=== PATIENT | female | born 1945 | race Caucasian/White ===

== ENCOUNTER 2018-07-19 12:41 | Emergency (ER) | payer OTHER ==
--- OUTSIDE RECORDS SUMMARY | 2018-07-19 12:43 | XMS REPORT ---
:1945 Author Organization eClinicalWorks Care Team Providers Name Role Phone Diamond Guallpa Provider Role Unavailable Allergies, Adverse Reactions, Alerts Substance Reaction Event Type N.K.D.A. Info Not Available Non Drug Allergy Problems Problem Type Condition Code Onset Dates Condition Status Assessment Bronchitis J40 Active Problem Atherosclerotic heart disease of I25.10 Active [place] coronary artery without angina pectoris Problem Upper respiratory tract infection, J06.9 Active unspecified type Problem Bronchitis J40 Active Assessment Cough R05 Active Assessment Encounter for screening mammogram Z12.31 Active for malignant neoplasm of breast Problem Cough R05 Active Medications Medication Code Code Instructions Start End Status Dosage System Date Date Metoprolol [facility] 03897851702 100 MG Orally Active 1 tablet Tartrate every 12 hrs with food Albuterol ND 42103494772 0.63 MG/3ML Nov 14, Active 3 ml as Sulfate Inhalation Three 2018 needed times a day Lexapro ND 56776432419 10 MG Orally Active 1 tablet Once a day Vitamin B12 ND 81825320581 1000 MCG Orally Active 1 tablet Once a day Albuterol [facility] 31753431069 108 (90 Base) Nov 07, Active 2 puffs as Sulfate HFA MCG/ACT 2018 needed Inhalation every 6 hrs Tessalon ND 63474583302 100 MG Orally Nov 14, Dec 14, Active 1 capsule Perles Three times a 2018 2018 as needed day Medrol ND 27971745850 4 MG Orally as Nov 07, Active as directed directed 2018 Omeprazole ND 33159897671 40 MG Orally Active 1 capsule Once a day Pradaxa ND 49104349816 150 MG Orally Active 1 capsule Twice a day Vitamin D3 ND 70745262265 1000 UNIT Orally Active 1 capsule Once a day Augmentin ND 62911133904 875-125 MG Nov 07, Nov Active 1 tablet Orally every 2017 12, hrs 2018 Albuterol ND 91820724469 (2.5 MG/3ML) Nov 14, Active 3 ml as Sulfate 0.083% 2018 needed Inhalation Three times a day Results No Known Results Summary Purpose eClinicalWorks Submission
--- OUTSIDE RECORDS SUMMARY | 2018-07-19 12:43 | XMS REPORT ---
:1945 Author Organization eClinicalWorks Care Team Providers Name Role Phone [place] Diamond Provider Role Unavailable Allergies No Known Allergies Problems Problem Type Condition Code Onset Dates Condition Status Problem Atherosclerotic heart disease of I25.10 Active [place] coronary artery without angina pectoris Problem Upper respiratory tract infection, J06.9 Active unspecified type Problem Bronchitis J40 Active Problem Cough R05 Active Medications No Known Medications Results No Known Results Summary Purpose eClinicalWorks Submission
--- OUTSIDE RECORDS SUMMARY | 2018-07-19 12:43 | XMS REPORT ---
:1945 Author Organization eClinicalWorks Care Team Providers Name Role Phone [place] Diamond Provider Role Unavailable Allergies No Known Allergies Problems Problem Type Condition Code Onset Dates Condition Status Problem Atherosclerotic heart disease of I25.10 Active [place] coronary artery without angina pectoris Problem Upper respiratory tract infection, J06.9 Active unspecified type Problem Bronchitis J40 Active Problem Cough R05 Active Medications No Known Medications Results No Known Results Summary Purpose eClinicalWorks Submission
[2018-07-19] MEDS ORDERED: NA CHLORIDE 0.9% 1,000 ML ONE (13:32)
[2018-07-19 13:36] LABS: Absolute Lymphocytes (CBC) 0.6 K/uL (0.7-4.9); Absolute Monocytes 0.9 K/uL (0.1-1.3); Absolute Neutrophil 4.7 K/uL (1.8-8.0); Basophils % 0.5 % (0-1.3); Eosinophils % 3.4 % (0-4.4); Lymphocytes % 9.7 % (15.3-44.8); MPV 9.3 fL (7.6-11.3); Monocytes % 13.4 % (3.3-12.3); RBC Red Blood Cell Count 3.71 M/uL (3.86-4.86)
--- NOTE | 2018-07-19 14:08 | RAD REPORT ---
EXAM DESCRIPTION: RAD - Abdomen 1 View (KUB) - 07/19/2018 2:00 pm CLINICAL HISTORY: abdominal cramping Pain COMPARISON: No comparisons FINDINGS: The bowel gas pattern is non-obstructive. No evidence of free air or pneumatosis. No suspi cious calcifications. Mild lumbar levoscoliosis. IMPRESSION: Negative examination.
[2018-07-19 14:26] LABS: Anisocytosis 1+; Blood Morphology Comment NOTED (NOT SEEN); Macrocytosis 1+; Platelet Estimate ADEQ; Urine White Blood Cell Casts OK
[2018-07-19 14:36] LABS: Albumin 3.5 g/dL (3.4-5.0); Bilirubin Direct 0.1 mg/dL (0-0.2); Bilirubin Total 0.4 mg/dL (0.2-1.0); Potassium 3.8 mmol/L (3.5-5.1); Protein, Total 7.5 g/dL (6.4-8.2)
[2018-07-19 14:45] LABS: Urine Blood TRACE (NEG); Urine Glucose NEGATIVE (NEG); Urine Protein 1+ (NEG); Urine Specific Gravity 1.025 (1.005-1.030)
--- NOTE | 2018-07-19 15:55 | EDPHYS ---
Physician Documentation [facility] Name: Jennyfer Castillo Age: 73 yrs Sex: Female : 1945 Arrival Date: 07/19/2018 Time: 12:48 Bed 7 Private MD: ED Physician Hammad Guzman HPI: 07/19 13:10 This 73 yrs old Female presents to ER via EMS with complaints of Near jr8 Syncope, Nausea/Vomiting/Diarrhea. 13:10 The patient presents to the emergency department with nausea, vomiting, diarrhea. jr8 Onset: The symptoms/episode began/occurred gradually, 5 day(s) ago. Possible causes: unknown. The symptoms are aggravated by food , The symptoms are alleviated by nothing. Associated signs and symptoms: Pertinent positives: near syncope today. Severity of symptoms: At their worst the symptoms were moderate in the emergency department the symptoms are unchanged. The patient has not experienced similar symptoms in the past. The patient has not recently seen a physician. Stated that she has had n/v/d for the past 5 days. Today while showering felt like she was going to pass out but did not. Historical: - Allergies: 12:54 kiwi; hb - Home Meds: 12:54 Metoprolol Tartrate Oral [Active]; Pradaxa oral oral [Active]; Omeprazole Oral [Active];hb - PMHx: 12:54 Hypertension; hb - Immunization history:: Adult Immunizations up to date. - Social history:: Smoking status: Patient/guardian denies using tobacco. - Ebola Screening: : No symptoms or risks identified at this time. ROS: 13:10 Eyes: Negative for injury, pain, redness, and discharge, ENT: Negative for injury, jr8 pain, and discharge, Neck: Negative for injury, pain, and swelling, Cardiovascular: Negative for chest pain, palpitations, and edema, Respiratory: Negative for shortness of breath, cough, wheezing, and pleuritic chest pain, Back: Negative for injury and pain, MS/Extremity: Negative for injury and deformity, Skin: Negative for injury, rash, and discoloration. 13:10 Constitutional: Positive for body aches, fatigue, malaise. 13:10 Abdomen/GI: Positive for nausea, vomiting, and diarrhea, abdominal cramps, Negative for abdominal distension, anorexia, dysphagia, hematemesis, black/tarry stool, rectal pain, rectal bleeding, bowel incontinence, flatulence. 13:10 Neuro: Positive for near syncope, Negative for altered mental status, dizziness, gait disturbance, headache, hearing loss, loss of consciousness, numbness, seizure activity, speech changes, syncope, tingling, tinnitus, tremor, visual changes, weakness. Exam: 13:10 Eyes: Pupils equal round and reactive to light, extra-ocular motions intact. Lids and jr8 lashes normal. Conjunctiva and sclera are non-icteric and not injected. Cornea within normal limits. Periorbital areas with no swelling, redness, or edema. ENT: Nares patent. No nasal discharge, no septal abnormalities noted. Tympanic membranes are normal and external auditory canals are clear. Oropharynx with no redness, swelling, or masses, exudates, or evidence of obstruction, uvula midline. Mucous membranes moist. Neck: Trachea midline, no thyromegaly or masses palpated, and no cervical lymphadenopathy. Supple, full range of motion without nuchal rigidity, or vertebral point tenderness. No Meningismus. Cardiovascular: Regular rate and rhythm with a normal S1 and S2. No gallops, murmurs, or rubs. Normal PMI, no JVD. No pulse deficits. Respiratory: Lungs have equal breath sounds bilaterally, clear to auscultation and percussion. No rales, rhonchi or wheezes noted. No increased work of breathing, no retractions or nasal flaring. Abdomen/GI: Soft, non-tender, with normal bowel sounds. No distension or tympany. No guarding or rebound. No evidence of tenderness throughout. Back: No spinal tenderness. No costovertebral tenderness. Full range of motion. Skin: Warm, dry with normal turgor. Normal color with no rashes, no lesions, and no evidence of cellulitis. MS/ Extremity: Pulses equal, no cyanosis. Neurovascular intact. Full, normal range of motion. Neuro: Awake and alert, GCS 15, oriented to person, place, time, and situation. Cranial nerves II-XII grossly intact. Motor strength 5/5 in all extremities. Sensory grossly intact. Cerebellar exam normal. Normal gait. Vital Signs: 12:52 BP 122 / 62; Pulse 57; Resp 16; Temp 97.7; Pulse Ox 97% on R/A; Weight 97.52 kg; Height hb 5 ft. 4 in. (162.56 cm); Pain 4/10; 13:32 BP 123 / 84; Pulse 55; Resp 17; Pulse Ox 99% on R/A; hb 14:20 BP 129 / 70; Pulse 59; Resp 17; Pulse Ox 100% on R/A; tw2 15:20 BP 104 / 58; Pulse 51; Resp 17; Pulse Ox 100% on R/A; tw2 16:05 BP 117 / 77; Pulse 55; Resp 17; Pulse Ox 97% on R/A; tw2 12:52 Body Mass Index 36.90 (97.52 kg, 162.56 cm) hb MDM: 12:51 Patient medically screened. jr8 15:56 Data reviewed: vital signs, nurses notes, lab test result(s), radiologic studies, plain jr8 films. Data interpreted: Pulse oximetry: on room air is 100 %. Interpretation: normal. Counseling: I had a detailed discussion with the patient and/or guardian regarding: the historical points, exam findings, and any diagnostic results supporting the discharge/admit diagnosis, lab results, radiology results, the need for outpatient follow up, a family practitioner, a yard hostler, to return to the emergency department if symptoms worsen or persist or if there are any questions or concerns that arise at home. Response to treatment: the patient's symptoms have markedly improved after treatment. 07/19 13:09 Order name: Basic Metabolic Panel; Complete Time: 15:02 [facility] 07/19 13:09 Order name: CBC with Diff; Complete Time: 15: [facility] 07/19 13:09 Order name: Creatinine for Radiology; Complete Time: 13:46 [facility] 07/19 13:09 Order name: Hepatic Function; Complete Time: 15:02 [facility] 07/19 13:09 Order name: Lipase; Complete Time: 15:02 [facility] 07/19 13:49 Order name: Urine Dipstick--Ancillary (enter results); Complete Time: 15:02 07/19 13:09 Order name: IV Saline Lock; Complete Time: 13:30 [facility] 07/19 13:09 Order name: Labs collected and sent; Complete Time: 13:30 [facility] 07/19 13:10 Order name: XRAY KUB; Complete Time: 14:10 [facility] 07/19 14:26 Order name: CBC Smear Scan; Complete Time: 15:02 EDMS Administered Medications: 13:25 Drug: NS 0.9% 1000 ml Route: IV; Rate: 1000 ml; Site: left antecubital; tw2 15:20 Follow up: Response: No adverse reaction; IV Status: Completed infusion; IV Intake: hb 1000ml Disposition: 07/20 08:25 Co-signature as Attending Physician, Hammad Guzman MD. Disposition: 07/19/18 15:55 Discharged to Home. Impression: Diarrhea, unspecified, Dehydration. - Condition is Stable. - Discharge Instructions: Dehydration, Adult, Diarrhea, Adult. - Medication Reconciliation Form, Thank You Letter, Antibiotic Education, Prescription Opioid Use form. - Follow up: Private Physician; When: 2 - 3 days; Reason: Recheck today's complaints, Continuance of care, Re-evaluation by your physician. - Problem is new. - Symptoms have improved. - Notes: Immodium OTC Push fluids Signatures: Dispatcher [employer] EDPR Rivas Weir PA PA jr8 Kaye Herrera RN RN Mary Huff RN RN tw2 Hammad Guzman MD MD Corrections: (The following items were deleted from the chart) 07/19 16:27 15:55 07/19/2018 15:55 Discharged to Home. Impression: Diarrhea, unspecified; hb Dehydration. Condition is Stable. Forms are Medication Reconciliation Form, Thank You Letter, Antibiotic Education, Prescription Opioid Use. Follow up: Private Physician; When: 2 - 3 days; Reason: Recheck today's complaints, Continuance of care, Re-evaluation by your physician. Problem is new. Symptoms have improved. jr8
--- NOTE | 2018-07-19 15:55 | ER ---
Nurse's Notes [facility] Name: Jennyfer Castillo Age: 73 yrs Sex: Female : 1945 Arrival Date: 07/19/2018 Time: 12:48 Bed 7 Private MD: Diagnosis: Diarrhea, unspecified;Dehydration Presentation: 07/19 12:51 Presenting complaint: EMS states: Near syncopal episode while ambulating to bathroom, hb N/V/D x 3-4 days. Transition of care: patient was not received from another setting of care. Onset of symptoms is unknown. Risk Assessment: Do you want to hurt yourself or someone else? Patient reports no desire to harm self or others. Care prior to arrival: Medication(s) given: Normal saline infusion, 500 mL, IV initiated. 20 GA, in the left antecubital area. 12:51 Method Of Arrival: EMS: [facility] 12:51 Acuity: GWEN 3 hb 12:55 Initial Sepsis Screen: Does the patient meet any 2 criteria? No. Patient's initial hb sepsis screen is negative. Does the patient have a suspected source of infection? No. Patient's initial sepsis screen is negative. Triage Assessment: 12:55 General: Appears in no apparent distress. Behavior is calm, cooperative. Pain: Pain hb currently is 4 out of 10 on a pain scale. EENT: No signs and/or symptoms were reported regarding the EENT system. Neuro: Level of Consciousness is awake, alert, obeys commands, Oriented to person, place, time, situation, Reports headache. Cardiovascular: Capillary refill < 3 seconds Patient's skin is warm and dry. Respiratory: Airway is patent Respiratory effort is even, unlabored, Respiratory pattern is regular, symmetrical, Breath sounds are clear bilaterally. GI: Abdomen is non-distended, Bowel sounds Abd is soft and non tender X 4 quads. Reports cramping, diarrhea, nausea, vomiting. : No signs and/or symptoms were reported regarding the genitourinary system. Derm: Skin is intact, is healthy with good turgor, Skin is pink, warm \T\ dry. Musculoskeletal: No signs and/or symptoms reported regarding the musculoskeletal system. Historical: - Allergies: 12:54 kiwi; hb - Home Meds: 12:54 Metoprolol Tartrate Oral [Active]; Pradaxa oral oral [Active]; Omeprazole Oral [Active];hb - PMHx: 12:54 Hypertension; hb - Immunization history:: Adult Immunizations up to date. - Social history:: Smoking status: Patient/guardian denies using tobacco. - Ebola Screening: : No symptoms or risks identified at this time. Screenin:55 Abuse screen: Denies threats or abuse. Denies injuries from another. Nutritional hb screening: No deficits noted. Tuberculosis screening: No symptoms or risk factors identified. Fall Risk Total [place] Fall Scale indicates High Risk Score (45 or more points). Fall prevention measures have been instituted. Side Rails Up X 2 Frequent Obs/Assessments Occuring Family Present and informed to notify staff if the need to leave the bedside As available patient and family educated on Fall Prevention Program and Strategies. Assessment: 12:56 General: see triage assessment. hb 14:21 Reassessment: Patient appears in no apparent distress at this time. No changes from tw2 previously documented assessment. Patient and/or family updated on plan of care and expected duration. Pain level reassessed. Patient is alert, oriented x 3, equal unlabored respirations, skin warm/dry/pink. 15:20 Reassessment: Patient appears in no apparent distress at this time. No changes from tw2 previously documented assessment. Patient and/or family updated on plan of care and expected duration. Pain level reassessed. Patient is alert, oriented x 3, equal unlabored respirations, skin warm/dry/pink. 16:05 Reassessment: Patient appears in no apparent distress at this time. No changes from tw2 previously documented assessment. Patient and/or family updated on plan of care and expected duration. Pain level reassessed. Patient is alert, oriented x 3, equal unlabored respirations, skin warm/dry/pink. Vital Signs: 12:52 BP 122 / 62; Pulse 57; Resp 16; Temp 97.7; Pulse Ox 97% on R/A; Weight 97.52 kg; Height hb 5 ft. 4 in. (162.56 cm); Pain 4/10; 13:32 BP 123 / 84; Pulse 55; Resp 17; Pulse Ox 99% on R/A; hb 14:20 BP 129 / 70; Pulse 59; Resp 17; Pulse Ox 100% on R/A; tw2 15:20 BP 104 / 58; Pulse 51; Resp 17; Pulse Ox 100% on R/A; tw2 16:05 BP 117 / 77; Pulse 55; Resp 17; Pulse Ox 97% on R/A; tw2 12:52 Body Mass Index 36.90 (97.52 kg, 162.56 cm) hb ED Course: 12:48 Patient arrived in ED. tw2 12:50 Kaye Herrera RN is Primary Nurse. hb 12:51 Rivas Weir PA is PHCP. jr8 12:51 Hammad Guzman MD is Attending Physician. jr8 12:52 Triage completed. hb 12:54 Arm band placed on. hb 12:55 Patient has correct armband on for positive identification. Placed in gown. Bed in low hb position. Call light in reach. Side rails up X2. 13:30 Maintain EMS IV. Dressing intact. Good blood return noted. Site clean \T\ dry. Gauge \T\ tw 2 site: 20 g LEFT ac. 13:58 XRAY KUB In Process Unspecified. EDMS 16:26 No provider procedures requiring assistance completed. IV discontinued, intact, hb bleeding controlled, No redness/swelling at site. Pressure dressing applied. Administered Medications: 13:25 Drug: NS 0.9% 1000 ml Route: IV; Rate: 1000 ml; Site: left antecubital; tw2 15:20 Follow up: Response: No adverse reaction; IV Status: Completed infusion; IV Intake: hb 1000ml Intake: 15:20 IV: 1000ml; Total: 1000ml. hb Outcome: 15:55 Discharge ordered by . [facility] 16:27 Discharged to home ambulatory. hb 16:27 Condition: stable 16:27 Discharge instructions given to patient, Instructed on discharge instructions, follow up and referral plans. medication usage, Demonstrated understanding of instructions, follow-up care, medications. 16:27 Patient left the ED. hb Signatures: Dispatcher [employer] EDIL Rivas Weir PA PA jr8 Kaye Herrera RN RN hb Wise, Tara, RN RN tw2
[2018-07-19 16:47] VITALS: TEMP 97.7
[2018-07-19 16:51] VITALS: BP 117/77; O2SAT 97
== END 2018-07-19 16:27 | disposition home or self-care (01) ==
LOC: ER 12:41
DX: E86.0 Dehydration (principal); I10 Essential (primary) hypertension; Z91.018 Allergy to other foods
CPT/HCPCS: 85025; 80048; 36415; 80076; 81003; 83690; 74018; J7030; 96360; 96361; 99284

== ENCOUNTER 2019-03-18 13:46 | Observation (INO) | payer OTHER ==
--- OUTSIDE RECORDS SUMMARY | 2019-03-18 13:48 | XMS REPORT ---
:1945 Author Organization eClinicalWorks Care Team Providers Name Role Phone Diamond Guallpa Provider Role Unavailable Allergies, Adverse Reactions, Alerts Substance Reaction Event Type N.K.D.A. Info Not Available Non Drug Allergy Problems Problem Type Condition Code Onset Dates Condition Status Assessment Bronchitis J40 Active Problem Atherosclerotic heart disease of I25.10 Active [place] coronary artery without angina pectoris Problem Upper respiratory tract infection, J06.9 Active unspecified type Problem Bronchitis J40 Active Assessment Cough R05 Active Assessment Encounter for screening mammogram Z12.31 Active for malignant neoplasm of breast Problem Cough R05 Active Medications Medication Code Code Instructions Start End Status Dosage System Date Date Metoprolol [facility] 96823128906 100 MG Orally Active 1 tablet Tartrate every 12 hrs with food Albuterol ND 54086764923 0.63 MG/3ML Nov 14, Active 3 ml as Sulfate Inhalation Three 2018 needed times a day Lexapro ND 22033609332 10 MG Orally Active 1 tablet Once a day Vitamin B12 ND 77328703655 1000 MCG Orally Active 1 tablet Once a day Albuterol [facility] 58306874580 108 (90 Base) Nov 07, Active 2 puffs as Sulfate HFA MCG/ACT 2018 needed Inhalation every 6 hrs Tessalon ND 90393172811 100 MG Orally Nov 14, Dec 14, Active 1 capsule Perles Three times a 2018 2018 as needed day Medrol ND 09575395258 4 MG Orally as Nov 07, Active as directed directed 2018 Omeprazole ND 76307563635 40 MG Orally Active 1 capsule Once a day Pradaxa ND 46481177563 150 MG Orally Active 1 capsule Twice a day Vitamin D3 ND 35970970376 1000 UNIT Orally Active 1 capsule Once a day Augmentin ND 81956603090 875-125 MG Nov 07, Nov Active 1 tablet Orally every 2017 12, hrs 2018 Albuterol ND 71171081254 (2.5 MG/3ML) Nov 14, Active 3 ml as Sulfate 0.083% 2018 needed Inhalation Three times a day Results No Known Results Summary Purpose eClinicalWorks Submission
--- OUTSIDE RECORDS SUMMARY | 2019-03-18 13:48 | XMS REPORT ---
:1945 Author Organization eClinicalWorks Care Team Providers Name Role Phone [place] Diamond Provider Role Unavailable Allergies No Known Allergies Problems Problem Type Condition Code Onset Dates Condition Status Problem Atherosclerotic heart disease of I25.10 Active [place] coronary artery without angina pectoris Problem Upper respiratory tract infection, J06.9 Active unspecified type Problem Bronchitis J40 Active Problem Cough R05 Active Medications No Known Medications Results No Known Results Summary Purpose eClinicalWorks Submission
--- OUTSIDE RECORDS SUMMARY | 2019-03-18 13:48 | XMS REPORT ---
:1945 Author Organization eClinicalWorks Care Team Providers Name Role Phone [place] Diamond Provider Role Unavailable Allergies No Known Allergies Problems Problem Type Condition Code Onset Dates Condition Status Problem Atherosclerotic heart disease of I25.10 Active [place] coronary artery without angina pectoris Problem Upper respiratory tract infection, J06.9 Active unspecified type Problem Bronchitis J40 Active Problem Cough R05 Active Medications No Known Medications Results No Known Results Summary Purpose eClinicalWorks Submission
--- NOTE | 2019-03-18 15:01 | RAD REPORT ---
EXAM DESCRIPTION: CT - Head Brain Wo Cont - 03/18/2019 2:43 pm CLINICAL HISTORY: Weakness, dizziness, atrial fibrillation, hypertension COMPARISON: None. TECHNIQUE: Axial 5 mm thick images of the head were obtained without IV contrast. All CT scans are performed using dose optimization technique as appropriate and may include automated exposure control or mA/KV adjustment according to patient size. FINDINGS: No intracranial hemorrhage, mass, edema or shift of mid-line structures. No acute infarcti on changes seen. No abnormal extra-axial fluid collections. Mild atrophy and mild chronic ischemic ch james are present. Ventricles are in proportion. Arterial and physiologic calcifications are present. Mastoid air cells are clear. Prominent chronic maxillary sinus disease present. No acute bony findings. IMPRESSION: Negative noncontrast CT head examination for acute intracranial finding. Mild atrophy and chronic ischemic changes are present. Chronic maxillary sinus disease.
[2019-03-18 15:14] LABS: Absolute Lymphocytes (CBC) 0.7 K/uL (0.7-4.9); Basophils % 1.2 % (0-1.3); Hematocrit 41.6 % (36.0-45.0); Lymphocytes % 9.8 % (15.3-44.8); MPV 8.9 fL (7.6-11.3); RBC Red Blood Cell Count 3.62 M/uL (3.86-4.86)
[2019-03-18 15:15] LABS: Protime INR 1.29
[2019-03-18 15:40] LABS: Albumin 3.6 g/dL (3.4-5.0); Bilirubin Total 0.9 mg/dL (0.2-1.0); Potassium 3.1 mmol/L (3.5-5.1); Protein, Total 7.9 g/dL (6.4-8.2)
[2019-03-18 15:43] LABS: Magnesium 1.2 mg/dL (1.8-2.4)
[2019-03-18 15:47] LABS: Urine Blood TRACE (NEG); Urine Glucose NEGATIVE (NEG); Urine Protein NEGATIVE (NEG); Urine pH 5.5 (5.0-7.0)
[2019-03-18] MEDS ORDERED: Magnesium Sulfate 2gm IVPB 2 G/50 ML BAG IV ONE (15:51)
[2019-03-18 15:59] LABS: Anisocytosis 2+; Blood Morphology Comment NOTED (NOT SEEN); Platelet Estimate ADEQ; Urine White Blood Cell Casts OK
--- NOTE | 2019-03-18 16:54 | EDPHYS ---
Physician Documentation [facility] Name: Jennyfer Castillo Age: 73 yrs Sex: Female : 1945 Arrival Date: 03/18/2019 Time: 13:57 Bed 2 Private MD: ED Physician Jorge Louis HPI: 03/18 15:45 This 73 yrs old Female presents to ER via EMS with complaints of generalized ps1 weakness and fatigue. 15:45 Patient states that she has significant fatigue and weakness over the last couple of ps1 weeks. She sates that she cannot perform ADL's and experienced several falls. Last fall was 3 days ago in the kitchen in which she could not hold herself up and she fell to her knees. She states that she has bilateral lower extremity weakness L>R leg. Able to move but significantly decreased from normal. Has been exposed to viral illness in family members recently with similar experiences. No diarrhea, fever, chills, NV. Does have myalgias. No urinary complaints. Hx of atrial fibrillation and sees Dr. Yip. On anticoagulants. . Historical: - Allergies: 14:14 kiwi; jl7 - Home Meds: 14:14 metoprolol tartrate 100 mg oral tab 1 tab 2 times per day [Active]; Pradaxa 150 mg oral jl7 cap 1 cap 2 times per day [Active]; Lexapro 10 mg Oral tab 1 tab once daily [Active]; Xanax 0.5 mg Oral tab [Active]; valsartan-hydrochlorothiazide 320-12.5 mg oral tab 1 tab once daily [Active]; - PMHx: 14:14 Hypertension; Atrial Fib; jl7 - Immunization history:: Adult Immunizations unknown. - Social history:: Smoking status: Patient/guardian denies using tobacco, Patient uses alcohol, on a daily basis. 4.5 oz of whiskey/day. - Ebola Screening: : No symptoms or risks identified at this time. ROS: 15:45 Cardiovascular: Negative for chest pain, palpitations, and edema, Respiratory: Negative ps1 for shortness of breath, cough, wheezing, and pleuritic chest pain, Abdomen/GI: Negative for abdominal pain, nausea, vomiting, diarrhea, and constipation, Back: Negative for injury and pain, MS/Extremity: Negative for injury and deformity. 15:45 Constitutional: Positive for body aches, fatigue, malaise. 15:45 Neuro: Positive for weakness, of the right leg and left leg. Exam: 15:45 Constitutional: This is a well developed, well nourished patient who is awake, alert, ps1 and in no acute distress. Head/Face: Normocephalic, atraumatic. Eyes: Pupils equal round and reactive to light, extra-ocular motions intact. Lids and lashes normal. Conjunctiva and sclera are non-icteric and not injected. Chest/axilla: Normal chest wall appearance and motion. Nontender with no deformity. No lesions are appreciated. Cardiovascular: Regular rate and rhythm. No gallops, murmurs, or rubs. Normal PMI, no JVD. No pulse deficits. Respiratory: Lungs have equal breath sounds bilaterally, clear to auscultation and percussion. No rales, rhonchi or wheezes noted. No increased work of breathing, no retractions or nasal flaring. Abdomen/GI: Soft, non-tender, with normal bowel sounds. No distension or tympany. No guarding or rebound. No evidence of tenderness throughout. Skin: Warm, dry with normal turgor. Normal color with no rashes, no lesions, and no evidence of cellulitis. 15:45 Neuro: Motor: strength is 4/5 in the right leg, Strength is 2/5 in the left leg. Vital Signs: 13:55 BP 134 / 90; Pulse 82; Resp 17 S; Temp 98(O); Pulse Ox 99% on R/A; Weight 104.33 kg jl7 (R); Height 5 ft. (152.40 cm) (R); Pain 0/10; 15:00 BP 143 / 86; Pulse 76; Resp 16 S; Pulse Ox 98% on R/A; jl7 16:30 BP 156 / 64; Pulse 71; Resp 19 S; Pulse Ox 98% on R/A; jl7 17:55 BP 138 / 69; Pulse 75; Resp 15 S; Pulse Ox 98% on R/A; jl7 19:00 BP 138 / 71; Pulse 75; Resp 17; Pulse Ox 100% on R/A; rv 20:01 BP 125 / 73; Pulse 74; Resp 17; Pulse Ox 100% on R/A; rv 13:55 Body Mass Index 44.92 (104.33 kg, 152.40 cm) jl7 MDM: 15:07 Patient medically screened. ps1 03/18 14:28 Order name: Magnesium; Complete Time: 15:56 ps1 03/18 14:28 Order name: CBC with Diff; Complete Time: 16:04 ps1 03/18 14:28 Order name: Protime (+inr); Complete Time: 15:24 ps1 03/18 14:28 Order name: CMP; Complete Time: 15:56 ps1 03/18 14:28 Order name: Flu; Complete Time: 15:56 ps1 03/18 15:15 Order name: Glucose, Ancillary Testing; Complete Time: 15:24 EDMS 03/18 15:23 Order name: CBC Smear Scan; Complete Time: 16:04 EDMS 03/18 15:31 Order name: Urine Dipstick--Ancillary (enter results); Complete Time: 15:56 bd 03/18 17:21 Order name: Thyroid Stimulating Hormone; Complete Time: 18:02 EDMS 03/18 17:21 Order name: Urinalysis EDMS 03/18 17:21 Order name: CBC with Automated Diff EDMS 03/18 17:21 Order name: CBC with Automated Diff EDMS 03/18 17:21 Order name: Comprehensive Metabolic Panel EDMS 03/18 17:21 Order name: Comprehensive Metabolic Panel EDMS 03/18 14:28 Order name: EKG; Complete Time: 14:29 ps1 03/18 14:28 Order name: Accucheck; Complete Time: 15:05 ps1 03/18 14:28 Order name: CT Head Brain wo Cont; Complete Time: 15:09 ps1 03/18 17:21 Order name: CONS Physician Consult EDMS 03/18 17:21 Order name: Physical Therapy Consult EDMS 03/18 17:21 Order name: Consistent Carb (ADA) 1800 Solomon EDMS 03/18 17:21 Order name: Hemoglobin A1c EDMS 03/18 17:21 Order name: Hemoglobin A1c; Complete Time: 18:30 EDMS 03/18 17:21 Order name: Magnesium EDMS 03/18 17:21 Order name: Magnesium EDMS 03/18 17:21 Order name: Phosphorus EDMS 03/18 17:21 Order name: Phosphorus EDMS 03/18 17:21 Order name: Lumbar Spine Wo Con; Complete Time: 19:50 EDMS 03/18 17:21 Order name: Patient Safety Orders [facility] 03/18 14:28 Order name: Cardiac monitoring; Complete Time: 15:05 [facility] 03/18 14:28 Order name: EKG - Nurse/Tech; Complete Time: 15:05 [facility] 03/18 14:28 Order name: IV Saline Lock; Complete Time: 15:05 [facility] 03/18 14:28 Order name: Labs collected and sent; Complete Time: 15:05 [facility] 03/18 14:28 Order name: NPO; Complete Time: 15:05 [facility] 03/18 14:28 Order name: O2 Per Protocol; Complete Time: 15:05 [facility] 03/18 14:28 Order name: O2 Sat Monitoring; Complete Time: 15:05 [facility] 03/18 14:28 Order name: Stroke Swallow Screen; Complete Time: 15: [facility] 03/18 14:28 Order name: Urine Dipstick-Ancillary (obtain specimen); Complete Time: 15:22 ps1 Administered Medications: 16:02 Drug: Magnesium Sulfate 2 grams Route: IVPB; Infused Over: 2 hrs; Site: right wrist; [facility] 18:02 Follow up: Response: No adverse reaction; IV Status: Completed infusion jl 20:00 Drug: Potassium Chloride 40 mEq Route: PO; 20:00 Follow up: Response: Medication administered at discharge. rv Disposition: 03/18/19 16:53 Hospitalization ordered by Mary Anne Soliz for Inpatient Admission. Preliminary diagnosis are Lower extremity weakness, Hypomagnesemia. - Bed requested for Telemetry/MedSurg (Inpatient). - Status is Inpatient Admission. rv - Condition is Stable. - Problem is new. - Symptoms are unchanged. UTI on Admission? No Signatures: Dispatcher [employer] [facility] Odalys Malave bd India Marinelli RN RN jl7 Jorge Louis MD MD ps1 Sukumar Domingo RN RN rv Corrections: (The following items were deleted from the chart) 18:36 16:53 Hospitalization Ordered by Mary Anne Soliz MD for Inpatient Admission. Preliminary bd diagnosis is Lower extremity weakness; Hypomagnesemia. Bed requested for Telemetry/MedSurg (Inpatient). Status is Inpatient Admission. Condition is Stable. Problem is new. Symptoms are unchanged. UTI on Admission? No. ps1 20:08 18:36 03/18/2019 16:53 Hospitalization Ordered by Mary Anne Soliz MD for Inpatient Admission. rv Preliminary diagnosis is Lower extremity weakness; Hypomagnesemia. Bed requested for Telemetry/MedSurg (Inpatient). Status is Inpatient Admission. Condition is Stable. Problem is new. Symptoms are unchanged. UTI on Admission? No. bd
--- NOTE | 2019-03-18 16:54 | ER ---
Nurse's Notes [facility] Name: Jennyfer Castillo Age: 73 yrs Sex: Female : 1945 Arrival Date: 03/18/2019 Time: 13:57 Bed 2 Private MD: Diagnosis: Lower extremity weakness;Hypomagnesemia Presentation: 03/18 13:55 Presenting complaint: EMS states: Generalized weakness x 2-3 weeks, pt reports legs jl7 giving out and falling to her knees, unable to get back up without help due to weakness, denies N/V/D, denies dizziness, denies lightheadedness, denies urinary symptoms. 13:55 Method Of Arrival: EMS: [facility] 7 13:55 Transition of care: patient was not received from another setting of care. Onset of jl7 symptoms was February 23, 2019. Risk Assessment: Do you want to hurt yourself or someone else? Patient reports no desire to harm self or others. Initial Sepsis Screen: Does the patient meet any 2 criteria? No. Patient's initial sepsis screen is negative. Does the patient have a suspected source of infection? No. Patient's initial sepsis screen is negative. Care prior to arrival: None. 138/81 BP, 72 HR, 16 RR, 97% O2 on RA. 13:55 Acuity: GWEN 3 jl7 Triage Assessment: 13:55 General: Appears in no apparent distress. uncomfortable, Behavior is calm, cooperative, jl7 appropriate for age. Pain: Denies pain. Neuro: Level of Consciousness is awake, alert, obeys commands, Oriented to person, place, time, situation, Speech is normal, Facial symmetry appears normal. Cardiovascular: Patient's skin is warm and dry. Respiratory: Airway is patent Respiratory effort is even, unlabored, Respiratory pattern is regular, symmetrical. Derm: Skin is pink, warm \T\ dry. Historical: - Allergies: 14:14 kiwi; jl7 - Home Meds: 14:14 metoprolol tartrate 100 mg oral tab 1 tab 2 times per day [Active]; Pradaxa 150 mg oral jl7 cap 1 cap 2 times per day [Active]; Lexapro 10 mg Oral tab 1 tab once daily [Active]; Xanax 0.5 mg Oral tab [Active]; valsartan-hydrochlorothiazide 320-12.5 mg oral tab 1 tab once daily [Active]; - PMHx: 14:14 Hypertension; Atrial Fib; jl7 - Immunization history:: Adult Immunizations unknown. - Social history:: Smoking status: Patient/guardian denies using tobacco, Patient uses alcohol, on a daily basis. 4.5 oz of whiskey/day. - Ebola Screening: : No symptoms or risks identified at this time. Screenin:00 Abuse screen: Denies threats or abuse. Denies injuries from another. Nutritional jl7 screening: No deficits noted. Tuberculosis screening: No symptoms or risk factors identified. 15:00 The patient has not been NPO before screening. The patient is currently on the jl7 following diet: Regular The patient is alert, able to follow commands. The patient does not exhibit slurred or garbled speech The patient is not exhibiting difficulty speaking. The patient does not exhibit difficulty understanding words. The patient is able to swallow own secretions with no drooling or need for suction. Patient tolerated one teaspoon of water. No drooling, immediate coughing, gurgling, or clearing of the throat was noted. The patient tolerated 90mL of water. No drooling, immediate coughing, gurgling, or clearing of the throat was noted. The patient passed the bedside swallow screening. Oral medications may be given as ordered. Contact Physician for further diet orders. Provider notified of bedside swallow screening results: Jorge Louis MD. 15:25 Fall Risk Fall in past 12 months (25 points). No secondary diagnosis (0 pts). IV access jl7 (20 points). Ambulatory Aid- None/Bed Rest/Nurse Assist (0 pts). Gait- Weak (10 pts.). Mental Status- Oriented to own ability (0 pts). Total Cote Fall Scale indicates High Risk Score (45 or more points). Fall prevention measures have been instituted. Side Rails Up X 2 1:1 Attendant Assigned Frequent Obs/Assessments Occuring Family Present and informed to notify staff if the need to leave the bedside As available patient and family educated on Fall Prevention Program and Strategies. Assessment: 14:00 General: See triage assessment. jl7 15:00 Reassessment: Patient appears in no apparent distress at this time. No changes from jl7 previously documented assessment. Patient and/or family updated on plan of care and expected duration. Pain level reassessed. Patient is alert, oriented x 3, equal unlabored respirations, skin warm/dry/pink. 16:00 Reassessment: Patient appears in no apparent distress at this time. No changes from jl7 previously documented assessment. Patient and/or family updated on plan of care and expected duration. Pain level reassessed. Patient is alert, oriented x 3, equal unlabored respirations, skin warm/dry/pink. 17:00 Reassessment: Patient appears in no apparent distress at this time. Patient and/or jl7 family updated on plan of care and expected duration. Pain level reassessed. Patient is alert, oriented x 3, equal unlabored respirations, skin warm/dry/pink. Vital Signs: 13:55 BP 134 / 90; Pulse 82; Resp 17 S; Temp 98(O); Pulse Ox 99% on R/A; Weight 104.33 kg jl7 (R); Height 5 ft. (152.40 cm) (R); Pain 0/10; 15:00 BP 143 / 86; Pulse 76; Resp 16 S; Pulse Ox 98% on R/A; jl7 16:30 BP 156 / 64; Pulse 71; Resp 19 S; Pulse Ox 98% on R/A; jl7 17:55 BP 138 / 69; Pulse 75; Resp 15 S; Pulse Ox 98% on R/A; jl7 19:00 BP 138 / 71; Pulse 75; Resp 17; Pulse Ox 100% on R/A; rv 20:01 BP 125 / 73; Pulse 74; Resp 17; Pulse Ox 100% on R/A; rv 13:55 Body Mass Index 44.92 (104.33 kg, 152.40 cm) jl7 ED Course: 13:55 Arm band placed on right wrist. jl7 13:55 Patient has correct armband on for positive identification. Placed in gown. Bed in low jl7 position. Call light in reach. Side rails up X2. case monitor on. Pulse ox on. NIBP on. Warm blanket given. 13:57 Patient arrived in ED. jl7 14:01 Jorge Louis MD is Attending Physician. ps1 14:07 India Marinelli RN is Primary Nurse. jl7 14:10 Triage completed. jl7 14:43 CT Head Brain wo Cont In Process Unspecified. EDMS 15:05 Initial lab(s) drawn, by me, sent to lab. Flu and/or RSV swab sent to lab. Inserted jl7 saline lock: 20 gauge in right forearm, using aseptic technique. Blood collected. 15:11 EKG done, by radiology technician. reviewed by Jorge Louis MD. at1 15:26 Urine collected: straight cath specimen, clear, Amount Returned: 100mL. Straight cath jl7 inserted, using sterile technique, 16 Fr. Specimen obtained. Returned clear yellow urine. Patient tolerated well. 16:00 No provider procedures requiring assistance completed. jl7 16:53 Mary Anne Soliz MD is Hospitalizing Provider. ps1 17:55 Patient admitted, IV remains in place. intact, No redness/swelling at site. jl7 Administered Medications: 16:02 Drug: Magnesium Sulfate 2 grams Route: IVPB; Infused Over: 2 hrs; Site: right wrist; jl7 18:02 Follow up: Response: No adverse reaction; IV Status: Completed infusion jl7 20:00 Drug: Potassium Chloride 40 mEq Route: PO; rv 20:00 Follow up: Response: Medication administered at discharge. rv Outcome: 16:53 Decision to Hospitalize by Provider. ps1 19:54 Admitted to Tele accompanied by nurse, via wheelchair, room 429, with chart, Report rv called to saleem mao 19:54 Condition: good 19:54 Instructed on the need for admit. 20:08 Patient left the ED. rv Signatures: Dispatcher [employer] EDIL Loreta Maza, salesperson ter[employer] EKG Tat1 India Marinelli RN RN jlJorge Fishman MD MD ps1 Sukumar Domingo, RN RN rv
[2019-03-18] MEDS ORDERED: ONDANSETRON 4 MG/2 ML VIAL IV PRN (17:12)
[2019-03-18] MEDS ORDERED: MAGNESIUM HYDROXIDE 8% 30 ML PO PRN (17:12)
[2019-03-18] MEDS ORDERED: ACETAMINOPHEN 500 MG TAB PO PRN (17:12)
[2019-03-18] MEDS ORDERED: ENOXAPARIN 40 MG/0.4 ML SQ SCH (19:00)
--- NOTE | 2019-03-18 19:47 | RAD REPORT ---
EXAM DESCRIPTION: MRI - Lumbar Spine Wo Con- 03/18/2019 7:36 pm CLINICAL HISTORY: lower ext weakness COMPARISON: No comparisons FINDINGS: Mild wedge compression fracture is seen affecting the L1 vertebral body. Edema is present suggesting that this represents an acute or subacute time frame injury. Vertebral body height loss is estimated at 5-10%. No aggressive marrow replacing process is seen. The conus medullaris terminates at a normal level. No thickening of the cauda equina or clumping of n erve roots seen. L1-2 level: A moderate disc extrusion is seen involving the central and right paracentral location me asuring maximally 7 mm in AP dimension. This results in right lateral recess stenosis. Moderate right -sided exit foraminal stenosis is present as well. L2-3 level: Mild posterior disc bulge is seen asymmetric to the right with mild facet and ligament fl avum hypertrophy. Moderate central canal stenosis is evident. Mild narrowing the anterior inferior as pects of both exit foramina. L3-4 level: Mild posterior disc bulge with [id number] facet hypertrophy. No significant canal o r foraminal stenosis seen. L4-5 level: Mild posterior disc bulges at the left with mild facet hypertrophy, greater on the left. No significant canal or foraminal stenosis evident. L5-S1 level: Mild posterior disc bulge is present. No canal or foraminal stenosis. IMPRESSION: Mild anterior wedge compression fracture affects the L1 vertebral body, likely acute or subacute in timeframe. Large disc extrusion right central and paracentral location at L1-2 results in right lateral recess s tenosis.
[2019-03-18] MEDS ORDERED: POTASSIUM CL SA 10 MEQ TAB PO ONE (20:00)
--- NOTE | 2019-03-18 20:53 | EKG ---
Test Date: 2019-03-18 Test Time: 15:06:23 Hold Worker: WESLEY MEASUREMENT RESULTS: Intervals: Rate: 77 NM: QRSD: 96 QT: 382 QTc: 432 [place]: P: NM: QRS: 13 T: 218 INTERPRETIVE STATEMENTS: Atrial fibrillation ST & T wave abnormality, consider inferolateral ischemia or digitalis effect Abnormal ECG Compared to ECG 10/29/2011 08:21:26 Possible ischemia now present ST (T wave) deviation still present Electronically Signed On 03-18-19 20:52:55 [employer] ADVISOR by Misael Fontenot
[2019-03-18] MEDS: INSULIN -REGULAR HUMAN 50 UNIT/0.5 ML ML SQ SCH (21:00)
[2019-03-18] MEDS ORDERED: MORPHINE 2 MG/ML SYR IV PRN (21:13)
[2019-03-18 21:37] VITALS: BMI 35.9
[2019-03-18] MEDS: DABIGATRAN 150 MG CAP PO SCH (22:23)
[2019-03-18] MEDS: METOPROLOL TAR 50 MG TAB PO SCH (22:43)
--- NOTE | 2019-03-19 01:09 | HP ---
Date of Admission: 03/18/2019 Chief Complaint: Lower extremity weakness. History Of Present Illness: This patient is a 73-year-old female who presented for lower extremity weakness. She has a history of hypertension, atrial fibrillation on Pradaxa, low back pain, and sinusitis. This patient has been suffering from weakness for few months. She said this cause difficulty to her ambulation. She does not have much strength in the lower extremities. She said the strength in upper extremities is normal. She fell 2 days ago at kitchen per her . She could not get up after falling. The patient has a history of lower back pain, which is rather worsening. The lower extremity weakness has been gradually getting worse. She hardly got up from chair for the last few days. She denied incontinence of urination and bowel movement. No nausea or vomiting. No diarrhea. No dysuria or hematuria. No fever or chills. This patient presented to the emergency room due to weakness in the ED. Her vitals are stable. Blood pressure 134/90. CT head did not demonstrate acute abnormality except chronic ischemic change. ED physician called me and it appears to be hard to discharge her at this moment. Her magnesium was low, which is 1.2 and potassium 3.1. Creatinine 1 in the ED. She was admitted for further management. Past Medical History: 1. Hypertension. 2. Atrial fibrillation. 3. Chronic lower back pain. 4. Chronic sinusitis. Review of Systems: Ten point system review unremarkable except as mentioned in the H and P. Home Medications: Metoprolol 100 mg t.i.d., Pradaxa 150 b.i.d., Lexapro 10 mg daily, Xanax 0.5, losartan 320, and hydrochlorothiazide 12.5 daily. Allergies: NO KNOWN ALLERGIES. Family History: Noncontributory. Social History: No smoking. Patient use whiskey on a daily basis. Physical Examination: General: Patient awake, alert, and oriented x3. No acute distress. Vital Signs: Temperature 98, blood pressure 134/90, pulse 82, oxygen saturation 99 on room air. HEENT: Normocephalic, atraumatic. PERRLA. EOMI. Moist mucous. Neck: Supple. No JVD. Chest: Clear to auscultation. No labored breathing. No wheezing or rhonchi. Heart: S1, S2. Irregular rhythm. No murmur. Abdomen: Soft, nontender. Bowel sounds are present. Extremities: No edema. No cyanosis. No redness. Neuro: Patient awake, alert, and oriented x3. Extremities: Strength bilateral lower extremities 3/5. Strength in upper extremities 5/5. Sensation intact in the lower extremities. Psych: Mood stable. No anxiety or agitation. Laboratory Data: WBC 7.5, hemoglobin 14.3, platelets 350. Sodium 135, potassium 3.1, bicarb 29, creatinine 1, glucose 101, magnesium 1.2. Assessment And Plan: 1. Lower extremity weakness. Etiology is unknown. CT head, unremarkable. Patient has a history of lower back pain. Suspected spinal stenosis or disk bulging. In addition, her magnesium and potassium are low. These may contribute to weakness. We will replace electrolytes. Lumbar spine MRI was ordered. We will consult neurologist. PT was ordered. 2. Hypomagnesemia. Magnesium 1.2 and we will replete it according to the protocol. 3. Hypokalemia. Potassium is 3.1, we will replace. 4. Atrial fibrillation. Her rate is under control. We will resume metoprolol and Pradaxa. 5. Hypertension. Blood pressure is relatively stable. We will resume home BP medications. 6. Chronic lower back pain. MRI was ordered, highly suspect spinal stenosis. Further plan will be based on patient conditions. QT/MODL Voice ID: [id number] ZACHARY
[2019-03-19 06:11] LABS: Absolute Lymphocytes (CBC) 0.7 K/uL (0.7-4.9); Basophils % 0.5 % (0-1.3); Hematocrit 38.3 % (36.0-45.0); Lymphocytes % 8.7 % (15.3-44.8)
[2019-03-19 06:45] LABS: Albumin 3.2 g/dL (3.4-5.0); Bilirubin Total 0.7 mg/dL (0.2-1.0); Magnesium 1.6 mg/dL (1.8-2.4); Phosphorus 3.3 mg/dL (2.5-4.9); Potassium 3.7 mmol/L (3.5-5.1)
[2019-03-19] MEDS: INSULIN -REGULAR HUMAN 50 UNIT/0.5 ML ML SQ SCH (07:30)
[2019-03-19] MEDS ORDERED: POTASSIUM CL SA 10 MEQ TAB PO ONE (07:43)
[2019-03-19] MEDS ORDERED: MAGNESIUM SULFATE 1 gm IVPB 1 GM/100 ML BAG IV ONE (07:43)
[2019-03-19] MEDS: DABIGATRAN 150 MG CAP PO SCH ×2 (08:51→20:53)
[2019-03-19] MEDS: METOPROLOL TAR 50 MG TAB PO SCH ×2 (08:51→21:00)
[2019-03-19] MEDS: PANTOPRAZOLE 40MG TABLET PO SCH (10:23)
--- NOTE | 2019-03-19 12:57 | P.PN ---
Subjective Date of Service: 03/19/19 Primary Care Provider: Ev Guallpa NP Chief Complaint: Lower ext. weakness Subjective: Improving Physical Examination - Vital Signs Temperature: 97.1 F Blood Pressure: 97/52 Pulse: 74 Respirations: 17 Pulse Ox (%): 95 - Physical Exam General: Alert, In no apparent distress HEENT: Atraumatic Neck: Supple Respiratory: Clear to auscultation bilaterally, Normal air movement Cardiovascular: Irregular heart rate/rhythm (AFib rate controlled) Gastrointestinal: No ascites, No tenderness, No masses Neurological: Other (Some weakness to the lower extremities but stable.) - Studies Laboratory Data (last 24 hrs) 03/18/19 15:00: PT 15.1 H, INR 1.29 03/18/19 15:00: WBC 7.5, Hgb 14.3, Hct 41.6, Plt Count 350 03/18/19 15:00: Sodium 135 L, Potassium 3.1 L, BUN 17, Creatinine 1.00, Glucose 101, Magnesium 1.2 L*, Total Bilirubin 0.9, AST 31, ALT 30, Alkaline Phosphatase 155 H Microbiology Data (last 24 hrs): 03/18/19 15:00 Nasopharnyx Influenza Type A Antigen Screen - Final 03/18/19 15:00 Nasopharnyx Influenza Type B Antigen Screen - Final Medications List Reviewed: Yes Assessment & Plan Discharge Plan: Other (Inpatient rehab) Plan to discharge in: 24 Hours Physician Review Additional Text: Impression: Lower extremity weakness and chronic back pain with MRI showing mild anterior wedge compression fracture to L1 and large disc extrusion to right central and pericentral location at L1-L2 resulting in right lateral recess stenosis Hypo magnesium and hypokalemia Atrial fibrillation on chronic anti coagulation therapy Hypertension Plan: Lower extremity weakness and chronic back pain with MRI showing mild anterior wedge compression fracture to L1 and large disc extrusion to right central and pericentral location at L1-L2 resulting in right lateral recess stenosis: Case discussed with Neurology. Will have physical therapy and occupational therapy assess patient. Hopefully patient will qualify for inpatient rehab. Will pursue inpatient rehab transfer. Patient will require evaluation by neuro surgery as an outpatient to further assess and address. Hypo magnesium and hypokalemia: Will monitor and adjust her appropriately. Replacement protocol in place. Atrial fibrillation on chronic anti coagulation therapy: Continue with metoprolol and Pradaxa. Blood pressure slightly low. Will decrease metoprolol. Will continue to monitor and address. Hypertension: Medication reviewed and restarted. Will adjust metoprolol. Time Spent Managing Pts Care (In Minutes): 55
[2019-03-19] MEDS ORDERED: NA CHLORIDE 0.9% 250 ML IV ONE (14:00)
[2019-03-19] MEDS ORDERED: TEMAZEPAM 15 MG CAP PO PRN (22:38)
--- NOTE | 2019-03-20 02:16 | CON ---
Reason For Consultation: Consultation called because of lower extremity weakness and gait instability. History Of Present Illness: Ms. Castillo is a 73-year-old right-handed patient with atrial fibrillation, hypertension, chronic low back pain , and a very long history of alcohol abuse. Patient's daughter and are in the room, provided information. They reported that she would drink upwards of 9-12 mixed drinks per night and she buys alcohol by the case and has done so for somewhere around 40+ or more years. Gait instability has been progressive over several months and perhaps longer. At [facility], she reportedly came in after falling in the kitchen and has had again multiple other falls with potential injury to her back. Her lumbar spine MRI done when she came to the emergency room showed at level L1-2 moderate disk extrusion with central and right paracentral herniation measuring 7 mm anterior-posterior diameter. There was moderate right-sided foraminal stenosis. At L2-3, there was moderate central canal stenosis. At L3-4, azml-cd-leededyd facet hypertrophic without canal stenosis. At L4-5, there is no evidence of stenosis of the spinal cord and nerve roots; and at L5-S1, no canal stenosis. Her head CT scan showed no acute ischemic or hemorrhagic change. There was mild atrophy noted with ventricular size increased in proportion. Physiologic calcification was noted. The patient was actually ambulated with the help of Physical Therapy and with a walker and minimum assistance with gait belt. She ambulated over 500 feet, did not lose balance, but did require some contact guard assistance. Past Medical History: As indicated. Allergies: NO KNOWN DRUG ALLERGIES. Family History: Noncontributory. Social History: Patient has a long history of heavy alcohol use and the family members report that she does not intent to quit and patient herself does not want to quit drinking. Medications At Home: Metoprolol 100 mg 3 times a day, Pradaxa 150 mg twice daily, Lexapro 10 mg daily, Xanax 0.5 mg daily, hydrochlorothiazide 12.5 mg daily. Review of Systems: Aside from mentioned above, no recent chills, fever, myalgias, arthralgias, rash , headache, weight change, or psychiatric issues. Physical Examination: Vital Signs: Blood pressure 113/59, family says her blood pressure would often be less than 100 systolic; pulse 74; respiratory rate 16; temperature 97.3; oxygen saturation 95% to 96% on room air. Weight 260 pounds, height 5 feet 5 inches, BMI 36. General: Ms. Castillo is sitting in a chair beside her bed. She is in no acute distress. HEENT: She is normocephalic and atraumatic. Her sclerae are anicteric. Oropharynx is moist and pink. Neck: Supple. Chest: Clear. Heart: Regular. Extremities: Show no edema or cyanosis. Neurologic: Alert, oriented to situation and person, follows commands appropriately. Cranial nerves show no focal deficits. Motor examination, mild weakness in the lower extremities at 4+/5 and symmetric in the upper extremities , 5/5. Sensory exam, she has a stocking-glove loss to light touch and temperature in the legs and arms. Reflexes are absent in the upper and lower extremities. Coordination intact in the upper extremities. Some mild difficulty with gtlc-wy-ihec bilaterally. Gait, she is ambulating well with a walker and contact guard assistance. Laboratory Studies: Complete blood count with differential is unremarkable except for slightly low white blood cell count of 3.3, platelets 343. INR 1.29. Chemistries show blood glucose range from 105-137. Magnesium was low at 1.6 and has been replaced. Alkaline phosphatase is elevated but ALT and AST are normal. Urinalysis showed a trace of blood, otherwise unremarkable. Electrocardiogram shows atrial fibrillation with ST and T wave abnormalities. Assessment: Ms. 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 Plan: 1. Patient was instructed to stop alcohol and to enter into an alcohol cessation program. The family members will be assisting with this. 2. She should be on thiamine 100 mg daily. 3. Folate 1 mg daily. 4. Continue anticoagulation. 5. She will be helped by Physical Therapy as outpatient, to use a walker at all times. She may follow up with Dr. Antony in 1 month. JU/JAIME Voice ID: [id number] Report ID: [id number] ZACHARY
[2019-03-20] MEDS: PANTOPRAZOLE 40MG TABLET PO SCH (06:47)
[2019-03-20] MEDS: DABIGATRAN 150 MG CAP PO SCH (08:49)
[2019-03-20] MEDS: METOPROLOL TAR 50 MG TAB PO SCH (08:50)
[2019-03-20] MEDS ORDERED: ESCITALOPRAM 20 MG TAB PO SCH (09:00)
--- NOTE | 2019-03-20 13:43 | P.DS ---
Admission Date: 03/18/19 Discharge Date: 03/20/19 Primary Care Provider: Ev Guallpa NP Disposition: ROUTINE DISCHARGE Discharge Condition: GOOD Reason for Admission: Lower ext. weakness Consultations: Neurology-Dr. Antony Procedures: MRI Brain: COMPARISON: No comparisons FINDINGS: Mild wedge compression fracture is seen affecting the L1 vertebral body. Edema is present suggesting that this represents an acute or subacute time frame injury. Vertebral body height loss is estimated at 5-10%. No aggressive marrow replacing process is seen. The conus medullaris terminates at a normal level. No thickening of the cauda equina or clumping of nerve roots seen. L1-2 level: A moderate disc extrusion is seen involving the central and right paracentral location measuring maximally 7 mm in AP dimension. This results in right lateral recess stenosis. Moderate right-sided exit foraminal stenosis is present as well. L2-3 level: Mild posterior disc bulge is seen asymmetric to the right with mild facet and ligament flavum hypertrophy. Moderate central canal stenosis is evident. Mild narrowing the anterior inferior aspects of both exit foramina. L3-4 level: Mild posterior disc bulge with vmrw-cq-grpvvlzt facet hypertrophy. No significant canal or foraminal stenosis seen. L4-5 level: Mild posterior disc bulges at the left with mild facet hypertrophy, greater on the left. No significant canal or foraminal stenosis evident. L5-S1 level: Mild posterior disc bulge is present. No canal or foraminal stenosis. IMPRESSION: Mild anterior wedge compression fracture affects the L1 vertebral body, likely acute or subacute in timeframe. Large disc extrusion right central and paracentral location at L1-2 results in right lateral recess stenosis. Medical Problem List: Lower extremity weakness and chronic back pain with MRI showing mild anterior wedge compression fracture to L1 and large disc extrusion to right central and pericentral location at L1-L2 resulting in right lateral recess stenosis complicated with possible alcoholic neuropathy Hypo magnesium and hypokalemia Atrial fibrillation on chronic anti coagulation therapy Hypertension Depression with anxiety GERD Alcohol abuse Brief History of Present Illness: 73-year-old female presented with lower extremity weakness. Patient with history of hypertension, atrial fibrillation on chronic anti coagulation therapy-Pradaxa, low back pain and sinusitis. Patient has been suffering weakness over the past several months. She had more difficulty upon admission. Patient was admitted to the hospital for further evaluation. Hospital Course: Patient was admitted for Lower extremity weakness and chronic back pain. MRI performed. MRI showed mild anterior wedge compression fracture to L1 and large disc extrusion to right central and pericentral location at L1-L2 resulting in right lateral recess stenosis. Patient was seen and evaluated by neurology. Patient also worked with physical therapy. Patient was able to ambulate appropriately. Upon further review patient with history of chronic alcohol abuse. 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 At discharge she will continue with folic acid 1 mg daily and thiamine 100 mg daily. Alcohol cessation was highly recommended. Patient plans to quit. At discharge patient may continue with outpatient physical therapy. Patient may benefit with neurology and possible neuro surgery evaluation as an outpatient. Recommend follow up with her PCP to further address. Patient may take Tylenol as needed for pain. Further adjustment or additional medication can be done by her PCP. Patient with atrial fibrillation on chronic anti coagulation therapy. At discharge she will continue with Pradaxa 150 mg twice daily and metoprolol 100 mg twice daily. And follow up with cardiology as directed. Patient with hypertension. At discharge she will continue with medication- metoprolol 100 mg 1 pill twice daily, valsartan/hydrochlorothiazide 320 mg/12.5 mg daily. Further adjustment can be done by her PCP.. Patient with depression anxiety. At discharge she will continue with Lexapro and alprazolam as directed. Patient with GERD. At discharge she will continue with Prilosec daily. Upon further evaluation patient with history of chronic alcohol abuse. Alcohol cessation addressed in detail. At discharge she will continue with folic acid 1 mg daily and thiamine 100 mg daily. Alcohol cessation education provided. Patient plans to quit. Vital Signs/Physical Exam: Temp Pulse Resp BP Pulse Ox 97.5 F 82 16 150/69 H 94 03/20/19 12:00 03/20/19 12:00 03/20/19 12:00 03/20/19 12:03/20/19 12:00 General: Alert, In no apparent distress, Oriented x3, Cooperative HEENT: Atraumatic Neck: Supple Respiratory: Clear to auscultation bilaterally, Normal air movement Cardiovascular: Normal pulses, Regular rate/rhythm Gastrointestinal: Normal bowel sounds, Soft and benign, Non-distended Integumentary: No tenderness/swelling, No erythema, No warmth, No cyanosis Neurological: Normal speech, Normal strength at 5/5 x4 extr, Normal tone Laboratory Data at Discharge: WBC 8.4 K/uL (4.3-10.9) 03/19/19 05:40 Hgb 13.4 g/dL (12.0-15.0) 03/19/19 05:40 Hct 38.3 % (36.0-45.0) 03/19/19 05:40 Plt Count 333 K/uL (152-406) 03/19/19 05:40 PT 15.1 SECONDS (9.5-12.5) H 03/18/19 15:00 INR 1.29 03/18/19 15:00 Sodium 138 mmol/L (136-145) 03/20/19 03:48 Potassium 4.0 mmol/L (3.5-5.1) 03/20/19 03:48 BUN 20 mg/dL (7-18) H 03/20/19 03:48 Creatinine 0.83 mg/dL (0.55-1.3) 03/20/19 03:48 Glucose 109 mg/dL (74-106) H 03/20/19 03:48 Phosphorus 3.3 mg/dL (2.5-4.9) 03/19/19 05:40 Magnesium 2.0 mg/dL (1.8-2.4) 03/20/19 03:48 Total Bilirubin 0.7 mg/dL (0.2-1.0) 03/19/19 05:40 AST 30 U/L (15-37) 03/19/19 05:40 ALT 26 U/L (12-78) 03/19/19 05:40 Alkaline Phosphatase 136 U/L (45-117) H 03/19/19 05:40 Home Medications: Escitalopram [Lexapro] 10 mg PO DAILY 10/29/11 Metoprolol Tartrate 100 mg PO BID 10/29/11 ALPRAZolam [Xanax*] 1 tab PO BIDP PRN 03/18/19 Dabigatran Etexilate Mesylate [Pradaxa*] 1 tab PO BID 03/18/19 Omeprazole [Prilosec] 1 tab PO DAILY 03/18/19 Valsartan/Hydrochlorothiazide [Valsartan-Hctz 320-12.5 mg Tab] 1 tab PO DAILY Folic Acid 1 mg PO DAILY #90 tablet 03/20/19 Thiamine HCl 100 mg PO DAILY #90 tablet 03/20/19 New Medications: Folic Acid 1 mg PO DAILY #90 tablet Thiamine HCl 100 mg PO DAILY #90 tablet Patient Discharge Instructions: 1. Recommend follow up with PCP within 1 week to follow up this hospitalization. 2. Patient was admitted for Lower extremity weakness and chronic back pain. MRI performed. MRI showed mild anterior wedge compression fracture to L1 and large disc extrusion to right central and pericentral location at L1-L2 resulting in right lateral recess stenosis. Patient was seen and evaluated by neurology. Patient also worked with physical therapy. Patient was able to ambulate appropriately. Upon further review patient with history of chronic alcohol abuse. 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 At discharge she will continue with folic acid 1 mg daily and thiamine 100 mg daily. Alcohol cessation was highly recommended. Patient plans to quit. At discharge patient may continue with outpatient physical therapy. Patient may benefit with neurology and possible neuro surgery evaluation as an outpatient. Recommend follow up with her PCP to further address. Patient may take Tylenol as needed for pain. Further adjustment or additional medication can be done by her PCP. 3. Patient with atrial fibrillation on chronic anti coagulation therapy. At discharge she will continue with Pradaxa 150 mg twice daily and metoprolol 100 mg twice daily. And follow up with cardiology as directed. 4. Patient with hypertension. At discharge she will continue with medication- metoprolol 100 mg 1 pill twice daily, valsartan/hydrochlorothiazide 320 mg/12.5 mg daily. Further adjustment can be done by her PCP.. 5. Patient with depression anxiety. At discharge she will continue with Lexapro and alprazolam as directed. 6. Patient with GERD. At discharge she will continue with Prilosec daily. 7. Upon further evaluation patient with history of chronic alcohol abuse. Alcohol cessation addressed in detail. At discharge she will continue with folic acid 1 mg daily and thiamine 100 mg daily. Alcohol cessation education provided. Patient plans to quit. Diet: AHA Activity: Fall precautions Time spent managing pt's care (in minutes): 55
[2019-03-20 16:51] VITALS: O2SAT 96
[2019-03-20 17:16] VITALS: BP 162/71; TEMP 97.4
== END 2019-03-20 17:26 | disposition home or self-care (01) ==
LOC: ER 13:46 → ERHOLD 17:07 → 4TH 20:01
PROVIDERS: ADMIT Internal Medicine; ATTEND Internal Medicine
DX: S32.010A Wedge compression fracture of first lumbar vertebra, initial encounter for closed fracture (principal); W18.30XA Fall on same level, unspecified, initial encounter; M51.26 Other intervertebral disc displacement, lumbar region; M48.061 Spinal stenosis, lumbar region without neurogenic claudication; R53.1 Weakness; E83.42 Hypomagnesemia; E87.6 Hypokalemia; I48.91 Unspecified atrial fibrillation; I10 Essential (primary) hypertension; F41.8 Other specified anxiety disorders; K21.9 Gastro-esophageal reflux disease without esophagitis; F10.10 Alcohol abuse, uncomplicated; Z79.01 Long term (current) use of anticoagulants
CPT/HCPCS: 96365; 93005; 85025 ×2; 80048; 36415 ×3; 83735 ×4; 84100; 84132; 85610; 82947 ×5; 84443; 81003; 83036; 80053 ×2; 87804 ×2; 70450; 72148; 97116; 97161; 97166; 97530; 94760 ×4; 51702; 99285; 96366; J3475 ×2; J2270; J7030; G0378 ×4

== ENCOUNTER 2020-06-04 19:30 | Emergency (ER) | payer OTHER ==
--- OUTSIDE RECORDS SUMMARY | 2020-06-04 19:34 | XMS REPORT | Continuity of Care Document ---
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 Clinics without without angina angina pectoris pectoris Upper Upper Problem Active [facility] respirator respirator [place] - y tract y tract Memoria infection, infection, l unspecifie unspecifie Ou tpati d type d type ent Clinics Cough Cough Problem [facility] Closed Closed Problem Active [facility] wedge wedge [facility] - compressio compressio Me moria n fracture n fracture l of first of first Outpat i lumbar lumbar ent vertebra vertebra Clinic s with with routine routine healing, healing, subsequent subsequent encounter encounter Hospital Hospital Diagnosis Active [facility] discharge discharge [facility] - follow-up follow-up [place] [facility] Unsteady Unsteady Problem Active [facility] gait [facility] Fall, Fall, Problem Active [facility] initial initial [facility] - encounter encounter [place] [facility] Weakness Weakness Problem [facility] Allergies, Adverse Reactions, Alerts This patient has no known allergies or adverse reactions. Medications Ordered Filled Start Stop Current Ordering Indication Dosage Frequency Signature Comments Components Source Medication Medication Date Date Medication? Clinician (SIG) Name Name Albuterol Albuterol 2017- Yes [place] [address] [facility] Sulfate Sulfate 9-12 [place] needed [facility] Albuterol Albuterol Yes [place] [address] [facility] Sulfate HFA Sulfate HFA 9-05 [place] needed [facility] Clinics Medrol Medrol Yes [place] as [facility] 9-05 [place] [facility] 00:[facility]: [facility] l [facility] Lexapro Lexapro Yes [place] [address] [facility] [place] [facility] Vitamin B12 Vitamin B12 Yes [place] [address] [facility] [facility] Omeprazole Omeprazole Yes [place] [address] [facility] [place] [facility] Pradaxa Pradaxa Yes [place] [address] [facility] [facility] Vitamin D3 Vitamin D3 Yes [place] [address] [facility] [place] [facility] Vitamin B-1 Vitamin B-1 Yes [place] TAKE [address] [facility] [place] TABLET BY [facility] - MOUTH Memoria EVERY DAY l Outpati ent Clinics Metoprolol Metoprolol Yes [place] [address] [facility] Tartrate Tartrate [place] with food [facility] - [facility] l Outpati ent Clinics Valsartan-H Valsartan-H Yes [place] TAKE [address] [facility] ydrochlorot ydrochlorot [place] TABLET BY [facility] - hiazide hiazide MOUTH [facility] EVERY DAY l Outpati ent Clinics Alprazolam Alprazolam Yes [place] (Schedule [facility] [place] IV Drug) [facility] - TAKE 1 Memoria TABLET BY l MOUTH Outpati EVERY DAY ent NEEDED Clinics Folic Acid Folic Acid Yes [place] TAKE [address] [facility] [place] TABLET BY [facility] - MOUTH [facility] EVERY DAY l Outpati ent Clinics Procedures This patient has no known procedures. Encounters Start End Encounter Admission Attending Care Care Encounter Source Date/Time Date/Time Type Type Clinicians Facility Department ID 2019-04-03 2019-04-03 Outpatient Dionte Patel [id number] [facility] 16[facility]20:00 16:20:00 [facility] Medicine Outpati ent Clinics 2018-02-12 2018-02-12 Outpatient Dionte Patel [id number] [facility] 09:39:00 09:39:[address] [facility] ent Clinics 2017-12-05 2017-12-05 Outpatient Dionte Patel [id number] [facility] 15:43:00 15:43:00 [facility] ent [facility] 2017-11-14 2017-11-14 Outpatient Dionte Patel [id number] 14:00:00 14:00:00 [facility] ent Clinics Results This patient has no known results.
[2020-06-04 19:50] LABS: Absolute Lymphocytes (CBC) 1.2 K/uL (0.7-4.9); Basophils % 0.9 % (0-1.3); Hematocrit 35.4 % (36.0-45.0); Lymphocytes % 19.2 % (15.3-44.8); MPV 8.4 fL (7.6-11.3)
[2020-06-04] MEDS ORDERED: ONDANSETRON 4 MG/2 ML VIAL ONE (19:57)
[2020-06-04] MEDS ORDERED: MORPHINE 2 MG/ML SYR ONE (20:09)
[2020-06-04] MEDS ORDERED: PANTOPRAZOLE 40 MG INJ ONE (20:09)
[2020-06-04 20:13] LABS: Protime INR 2.07
[2020-06-04] MEDS ORDERED: FENTANYL CITR 100 MCG/2 ML ONE (20:16)
[2020-06-04 20:31] LABS: Blood Morphology Comment NOTED (NOT SEEN); Macrocytosis 2+; Platelet Estimate INCR; White Blood Cell Scan OK (OK)
[2020-06-04 20:34] LABS: ALT/SGPT 26 U/L (12-78); AST/SGOT 24 U/L (15-37); Albumin 3.5 g/dL (3.4-5.0); Alkaline Phosphatase 149 U/L (45-117); BUN Blood Urea Nitrogen 21 mg/dL (7-18); Bicarbonate 29 mmol/L (21-32); Bilirubin Direct 0.2 mg/dL (0-0.2); Bilirubin Total 0.5 mg/dL (0.2-1.0); Glucose Level 117 mg/dL (74-106); Lipase 154 U/L (73-393); NT PRO-BNP 1230 pg/mL (<125); Potassium 3.7 mmol/L (3.5-5.1); Protein, Total 7.5 g/dL (6.4-8.2); Sodium Level 144 mmol/L (136-145); Troponin (Emerg Dept Use Only) < 0.02 ng/mL (0.0-0.045)
[2020-06-04 20:48] LABS: Magnesium 1.5 mg/dL (1.8-2.4)
--- NOTE | 2020-06-04 21:34 | RAD REPORT ---
EXAM DESCRIPTION: CT - Angio Aorta For Dissection - 06/04/2020 9:09 pm CLINICAL HISTORY: . Chest and abdominal pain COMPARISON: None TECHNIQUE: Computed tomography angiography of the chest, abdomen pelvis were obtained. 100 cc Isovue 370 was administered intravenously. Coronal and sagittal reconstruction were performed. MIP 3D reconstruction was performed All CT scans are performed using dose optimization technique as appropriate and may include automated exposure control or mA/KV adjustment according to patient size. FINDINGS: Dissection involves the thoracic aorta immediately distal to the takeoff of the left subc lavian artery. The dissection involves all of the descending thoracic aorta and all of the abdominal aorta. The dissection involves the very proximal left common iliac artery. The true lumen contains th e celiac, SMA, and renal arteries. The JEAN PAUL appears to be supplied by the false lumen. The dissection does not involve the ascending thoracic aorta. The celiac, SMA and JEAN PAUL are patent . A lung consolidation is not present. A pericardial effusion is not seen. A pleural effusion is not n oted. The liver,spleen, pancreas adrenals kidneys demonstrate no significant abnormality. IMPRESSION: IIIB aortic dissection DeBakey classification
--- NOTE | 2020-06-04 21:36 | RAD REPORT ---
EXAM DESCRIPTION: Ayo Single View06/04/2020 8:21 pm CLINICAL HISTORY: Chest pain COMPARISON: 2011 FINDINGS: The lungs appear clear of acute infiltrate. The heart is mildly enlarged IMPRESSION: No acute abnormalities displayed
--- NOTE | 2020-06-04 21:37 | RAD REPORT ---
EXAM DESCRIPTION: US - Abdomen Exam Limited - 06/04/2020 8:59 pm CLINICAL HISTORY: Abdominal pain. COMPARISON: None. FINDINGS: The gallbladder wall is not thickened. A gallstone is not seen. The biliary tree is normal caliber. IMPRESSION: Unremarkable gallbladder ultrasound.
--- NOTE | 2020-06-04 21:49 | ER ---
Nurse's Notes [facility] Name: Jennyfer Castillo Age: 75 yrs Sex: Female : 1945 Arrival Date: 06/04/2020 Time: 19:32 Bed 18 Private MD: Diagnosis: Dissection of thoracoabdominal aorta-3B DeBakey;Atrial fibrillation and flutter;Essential (primary) hypertension Presentation: 06/04 19:34 Chief complaint: EMS states: 45 mins ago patient started having nausea and epigastric mg2 pain radiating to the chest and across the back. Coronavirus screen: Client denies travel out of the [place] in the last 14 days. At this time, the client does not indicate any symptoms associated with coronavirus-19. Ebola Screen: No symptoms or risks identified at this time. Initial Sepsis Screen: Does the patient meet any 2 criteria? No. Patient's initial sepsis screen is negative. Does the patient have a suspected source of infection? No. Patient's initial sepsis screen is negative. Risk Assessment: Do you want to hurt yourself or someone else? Patient reports no desire to harm self or others. Onset of symptoms was June 04, 2020. 19:34 Method Of Arrival: EMS: [facility] mg2 19:34 Acuity: GWEN 3 mg2 Triage Assessment: 19:37 General: Appears in no apparent distress. comfortable, Behavior is calm, cooperative. mg2 Pain: Complains of pain in chest Pain radiates to back Pain currently is 6 out of 10 on a pain scale. Quality of pain is described as pressure, Pain began gradually, 1 hour ago. EENT: No signs and/or symptoms were reported regarding the EENT system. Neuro: Level of Consciousness is awake, alert, obeys commands, Oriented to person, place, time, situation. Cardiovascular: Capillary refill < 3 seconds Patient's skin is warm and dry. Respiratory: Airway is patent Respiratory effort is even, unlabored, Respiratory pattern is regular, symmetrical. GI: Reports nausea. : No signs and/or symptoms were reported regarding the genitourinary system. Derm: Skin is intact, is healthy with good turgor, Skin is pink, warm \T\ dry. normal. Musculoskeletal: Circulation, motion, and sensation intact. Capillary refill < 3 seconds. Historical: - Allergies: 19:36 kiwi; mg2 - PMHx: 19:36 Atrial Fib; Hypertension; mg2 - PSHx: 19:36 abdominal sx; mg2 - Immunization history:: Flu vaccine status is unknown. - Social history:: Smoking status: Patient denies any tobacco usage or history of. Patient uses alcohol, occasionally. Patient/guardian denies using street drugs, IV drugs. - Family history:: not pertinent. Screenin:38 Abuse screen: Denies threats or abuse. Denies injuries from another. Nutritional mg2 screening: No deficits noted. Tuberculosis screening: No symptoms or risk factors identified. Fall Risk IV access (20 points). Assessment: 19:38 General: see triage note. mg2 20:56 Reassessment: patient sent to CT via stretcher. patient said she had raw oysters last mg2 night and today for lunch. provider is aware. 21:00 Reassessment: Patient appears in no apparent distress at this time. mg2 23:20 Reassessment: report given to JOSE ALFREDO Beltran of [facility]. mg2 23:27 Reassessment: report given to EMS. patient vitally stable, IV intact. mg2 23:29 Reassessment: daughter contacted - Erendira drake- [phone]. mg2 Vital Signs: 19:34 BP 154 / 85; Pulse 71; Resp 18; Pulse Ox 98% on R/A; Weight 104.33 kg; Height 5 ft. 4 mg2 in. (162.56 cm); Pain 6/10; 19:57 Temp 98.2(O); mg2 21:58 BP 175 / 104; Pulse 83; Resp 18; Pulse Ox 98% on R/A; mg2 22:13 BP 137 / 50; Pulse 93; Resp 18; Pulse Ox 95% on R/A; mg2 22:30 BP 163 / 68; Pulse 80; Resp 18; Pulse Ox 92% on R/A; mg2 22:54 BP 155 / 75; Pulse 78; Resp 18; Pulse Ox 97% on 4 lpm NC; mg2 23:26 BP 135 / 80; Pulse 89; Resp 18; Pulse Ox 96% on 3 lpm NC; mg2 19:34 Body Mass Index 39.48 (104.33 kg, 162.56 cm) mg2 ED Course: 19:32 Patient arrived in ED. mg2 19:33 James Carpenter RN is Primary Nurse. mg2 19:36 Triage completed. mg2 19:36 Jorgito Douglas MD is Attending Physician. zaid 19:36 Arm band placed on. mg2 19:38 Patient has correct armband on for positive identification. mg2 19:38 No provider procedures requiring assistance completed. Inserted saline lock: 20 gauge mg2 in left forearm, using aseptic technique. Blood collected. by JOSE ALFREDO Chawla. 20:21 XRAY Chest (1 view) In Process Unspecified. EDMS 21:00 US Abdomen Limited In Process Unspecified. EDMS 21:08 CT Aorta for Dissection In Process Unspecified. EDMS 21:09 COVID swab sent to lab. mg2 22:03 Initiated transfer with Cortney Tatum at [facility]. tt3 22:08 Cortney requested a face sheet and the covid result be faxed to . tt3 22:09 Inserted saline lock: 18 gauge in right antecubital area, using aseptic technique. dh4 22:11 Cortney called back and requested to speak to Dr. Douglas. Call was transferred to Dr. yeimi Douglas. 23:00 Sidhu cath inserted, using sterile technique, 16 Fr., by ks, balloon inflated, urine mg2 specimen collected. 23:30 Patient transferred, IV remains in place. mg2 Administered Medications: 19:42 Drug: Zofran (Ondansetron) 4 mg Route: IVP; Site: left forearm; mg2 21:21 Follow up: Response: No adverse reaction mg2 19:56 Not Given (Patient Refused): morphine 2 mg IVP once; (PAIN>8) RASS on ADMN: Combtv4, mg2 Very Agttd3, Agttd2, Rstlss1, AlertClm0, Drwsy-1, LtSdtn-2, ModSdtn-3, DpSdtn-4, UnArsble-5 x2 19:57 Drug: ProTONIX 40 mg Route: IVP; Site: left forearm; mg2 21:21 Follow up: Response: No adverse reaction mg2 20:08 Drug: fentaNYL (PF) 25 mcg Route: IVP; Site: left forearm; mg2 21:20 Follow up: Response: No adverse reaction mg2 21:58 Drug: Cardene 5 mg/hr Route: IV; Rate: per protocol; Site: left forearm; mg2 23:20 Follow up: Response: No adverse reaction; IV Status: Infusion continued upon transfer mg2 Outcome: 21:48 ER care complete, transfer ordered by MD. mar 23:29 Transferred by ground EMS to [facility], Transfer form completed. mg2 23:29 Condition: stable 23:29 Instructed on the need for transfer, Demonstrated understanding of instructions. 23:30 Patient left the ED. mg2 Signatures: Dispatcher [employer] EDJorgito Dobson MD MD cha Gardose, Michele, RN RN mg2 Keo Ramos 4 Regina, Luciano tt3 Corrections: (The following items were deleted from the chart) 19:43 19:38 Inserted saline lock: 20 gauge by JOSE ALFREDO Chawla mg2 mg2
--- NOTE | 2020-06-04 21:49 | EDPHYS ---
Physician Documentation [facility] Name: Jennyfer Castillo Age: 75 yrs Sex: Female : 1945 Arrival Date: 06/04/2020 Time: 19:32 Bed 18 Private MD: ED Physician Jorgito Douglas HPI: 06/04 19:50 This 75 yrs old Female presents to ER via EMS with complaints of abdomen pain zaid and chest pain. 19:50 The patient or guardian reports chest pain that is located primarily in the epigastric zaid area. Onset: 1.5 hour(s) ago. The patient presents with abdominal pain in the epigastric area, in the upper abdomen. Onset: The symptoms/episode began/occurred 1.5 hour(s) ago. The pain radiates to back, abdomen. The symptoms radiate to Associated signs and symptoms: Pertinent positives: nausea and vomiting, chest pain, shortness of breath. The symptoms are described as constant, dull. Modifying factors: The symptoms are alleviated by nothing, the symptoms are aggravated by nothing. Historical: - Allergies: 19:36 kiwi; mg2 - PMHx: 19:36 Atrial Fib; Hypertension; mg2 - PSHx: 19:36 abdominal sx; mg2 - Immunization history:: Flu vaccine status is unknown. - Social history:: Smoking status: Patient denies any tobacco usage or history of. Patient uses alcohol, occasionally. Patient/guardian denies using street drugs, IV drugs. - Family history:: not pertinent. ROS: 19:50 Constitutional: Negative for fever, chills, and weight loss, Eyes: Negative for injury, zaid pain, redness, and discharge, ENT: Negative for injury, pain, and discharge, Neck: Negative for injury, pain, and swelling, Respiratory: Negative for shortness of breath, cough, wheezing, and pleuritic chest pain, Back: Negative for injury and pain, : Negative for injury, bleeding, discharge, and swelling, MS/Extremity: Negative for injury and deformity, Skin: Negative for injury, rash, and discoloration, Neuro: Negative for headache, weakness, numbness, tingling, and seizure, Psych: Negative for depression, anxiety, suicide ideation, homicidal ideation, and hallucinations, Allergy/Immunology: Negative for hives, rash, and allergies, Endocrine: Negative for neck swelling, polydipsia, polyuria, polyphagia, and marked weight changes, Hematologic/Lymphatic: Negative for swollen nodes, abnormal bleeding, and unusual bruising. 19:50 Cardiovascular: Positive for chest pain. 19:50 Respiratory: Positive for shortness of breath, at rest. 19:50 Abdomen/GI: Positive for abdominal pain, nausea and vomiting, abdominal distension, of the left upper quadrant. Exam: 19:50 Constitutional: This is a well developed, well nourished patient who is awake, alert, zaid and in no acute distress. Head/Face: Normocephalic, atraumatic. Eyes: Pupils equal round and reactive to light, extra-ocular motions intact. Lids and lashes normal. Conjunctiva and sclera are non-icteric and not injected. Cornea within normal limits. Periorbital areas with no swelling, redness, or edema. ENT: Nares patent. No nasal discharge, no septal abnormalities noted. Tympanic membranes are normal and external auditory canals are clear. Oropharynx with no redness, swelling, or masses, exudates, or evidence of obstruction, uvula midline. Mucous membranes moist. Neck: Trachea midline, no thyromegaly or masses palpated, and no cervical lymphadenopathy. Supple, full range of motion without nuchal rigidity, or vertebral point tenderness. No Meningismus. Chest/axilla: Normal chest wall appearance and motion. Nontender with no deformity. No lesions are appreciated. Cardiovascular: Regular rate and rhythm with a normal S1 and S2. No gallops, murmurs, or rubs. Normal PMI, no JVD. No pulse deficits. Respiratory: Lungs have equal breath sounds bilaterally, clear to auscultation and percussion. No rales, rhonchi or wheezes noted. No increased work of breathing, no retractions or nasal flaring. Back: No spinal tenderness. No costovertebral tenderness. Full range of motion. Female : Normal external genitalia. Skin: Warm, dry with normal turgor. Normal color with no rashes, no lesions, and no evidence of cellulitis. MS/ Extremity: Pulses equal, no cyanosis. Neurovascular intact. Full, normal range of motion. Neuro: Awake and alert, GCS 15, oriented to person, place, time, and situation. Cranial nerves II-XII grossly intact. Motor strength 5/5 in all extremities. Sensory grossly intact. Cerebellar exam normal. Normal gait. Psych: Awake, alert, with orientation to person, place and time. Behavior, mood, and affect are within normal limits. 19:50 ECG was reviewed by the Attending Physician. 19:50 Abdomen/GI: Inspection: distension, Bowel sounds: normal, Palpation: mild abdominal tenderness, moderate abdominal tenderness, in the epigastric area, Liver: no appreciated palpable abnormalities, Hernia: not appreciated. Vital Signs: 19:34 BP 154 / 85; Pulse 71; Resp 18; Pulse Ox 98% on R/A; Weight 104.33 kg; Height 5 ft. 4 mg2 in. (162.56 cm); Pain 6/10; 19:57 Temp 98.2(O); mg2 21:58 BP 175 / 104; Pulse 83; Resp 18; Pulse Ox 98% on R/A; mg2 22:13 BP 137 / 50; Pulse 93; Resp 18; Pulse Ox 95% on R/A; mg2 22:30 BP 163 / 68; Pulse 80; Resp 18; Pulse Ox 92% on R/A; mg2 22:54 BP 155 / 75; Pulse 78; Resp 18; Pulse Ox 97% on 4 lpm NC; mg2 23:26 BP 135 / 80; Pulse 89; Resp 18; Pulse Ox 96% on 3 lpm NC; mg2 19:34 Body Mass Index 39.48 (104.33 kg, 162.56 cm) mg2 MDM: 19:36 Patient medically screened. zaid 21:12 Differential diagnosis: abnormal EKG, acute myocardial infarction, anxiety, coronary zaid artery disease chest wall pain, cholecystitis, Cholelithiasis gastritis, pancreatitis, peptic ulcer disease, pericarditis, pulmonary embolus, thoracic aortic disection, bowel obstruction, coronary artery disease, Cholelithiasis, non-specific abd pain, pancreatitis, urinary tract infection. HEART Score: History: Moderately Suspicious (1), ECG: Non specific repolarization disturbance / LBTB / PM (1), Age: > or = 65 years (2), Risk Factors: > or = 3 Risk factors for atherosclerotic disease (2), [Hypercholesterolemia] [Hypertension] [+ Family HX] [Obesity] Troponin: < or = 1 x Normal Limit (0). The patient was not given aspirin in the Emergency Department. Not indicated due to patient's past medical history. The patient's deep vein thrombosis risk score was calculated as follows: Total Score: 0. This patient was found to be at low risk for a deep vein thrombosis by using the Well's assessment criteria. The patient's pulmonary embolism risk score was calculated as follows: Total Score: 0-2 points. This patient was found to be at low risk for a pulmonary embolism by using the Well's assessment criteria. DANIEL Risk Score: 1 - patient's age is greater or equal to 65 years, 1 - Three or more CAD risk factors, 1- Known CAD, 1 - ST deviation >0.5mm, TOTAL SCORE = 4. Data reviewed: vital signs, nurses notes, lab test result(s), EKG, radiologic studies, CT scan, plain films, ultrasound. Data interpreted: monitor worker: rate is 71 beats/min, rhythm is atrial fibrillation. Test interpretation: by ED physician or midlevel provider: ECG, plain radiologic studies. 06/04 19:33 Order name: Basic Metabolic Panel; Complete Time: 20:50 mg2 06/04 19:33 Order name: CBC with Diff; Complete Time: 20:36 mg2 06/04 19:33 Order name: LFT's; Complete Time: 20:50 mg2 06/04 19:33 Order name: Magnesium; Complete Time: 20:50 mg2 06/04 19:33 Order name: NT PRO-BNP; Complete Time: 20:50 mg2 06/04 19:33 Order name: PT-INR; Complete Time: 20:24 mg2 06/04 19:33 Order name: Troponin (emerg Dept Use Only); Complete Time: 20:50 [facility] 06/04 19:49 Order name: Lipase [facility] 06/04 19:49 Order name: COVID-19 : Document "Date of Symptom Onset" if Symptomatic. [facility] 06/04 19:55 Order name: CBC Smear Scan; Complete Time: 20:36 EDMS 06/04 19:55 Order name: Lipase; Complete Time: 20:50 EDMS 06/04 20:25 Order name: Urine Culture [facility] 06/04 19:33 Order name: XRAY Chest (1 view); Complete Time: 21:56 mg2 06/04 19:33 Order name: EKG; Complete Time: 19:35 mg2 06/04 19:33 Order name: Cardiac monitoring; Complete Time: 19:34 mg2 06/04 19:33 Order name: EKG - Nurse/Tech; Complete Time: 19:34 mg2 06/04 19:33 Order name: IV Saline Lock; Complete Time: 19:37 mg2 06/04 19:33 Order name: Labs collected and sent; Complete Time: 19:37 mg2 06/04 19:49 Order name: EKG; Complete Time: 19:50 zaid 06/04 19:49 Order name: CT Aorta for Dissection; Complete Time: 21:56 zaid 06/04 20:25 Order name: US Abdomen Limited; Complete Time: 21:56 zaid 06/04 20:28 Order name: Urine Culture [facility] 06/04 21:23 Order name: SARS-COV-2 RT PCR; Complete Time: 21:34 [facility] 06/04 19:33 Order name: O2 Per Protocol; Complete Time: 19:37 mg2 06/04 19:33 Order name: O2 Sat Monitoring; Complete Time: 19:37 mg2 06/04 19:49 Order name: EKG - Nurse/Tech; Complete Time: 19:49 zaid 06/04 20:25 Order name: Urine Dipstick-Ancillary (obtain specimen); Complete Time: 21:59 zaid 06/04 21:43 Order name: IV Saline Lock - Large Bore; Complete Time: 21:48 zaid EC:50 Rate is 68 beats/min. Rhythm is irregular. QRS [place] is Normal. [place] interval is normal. zaid QRS interval is normal. QT interval is normal. No Q waves. T waves are Normal. ST Segment is depressed in leads II, III, aVF, V5, V6. Clinical impression: Atrial Fibrillation. Interpreted by me. Reviewed by me. Administered Medications: 19:42 Drug: Zofran (Ondansetron) 4 mg Route: IVP; Site: left forearm; mg2 21:21 Follow up: Response: No adverse reaction mg2 19:56 Not Given (Patient Refused): morphine 2 mg IVP once; (PAIN>8) RASS on ADMN: Combtv4, mg2 Very Agttd3, Agttd2, Rstlss1, AlertClm0, Drwsy-1, LtSdtn-2, ModSdtn-3, DpSdtn-4, UnArsble-5 x2 19:57 Drug: ProTONIX 40 mg Route: IVP; Site: left forearm; mg2 21:21 Follow up: Response: No adverse reaction mg2 20:08 Drug: fentaNYL (PF) 25 mcg Route: IVP; Site: left forearm; mg2 21:20 Follow up: Response: No adverse reaction mg2 21:58 Drug: Cardene 5 mg/hr Route: IV; Rate: per protocol; Site: left forearm; mg2 23:20 Follow up: Response: No adverse reaction; IV Status: Infusion continued upon transfer mg2 Disposition: 06/04/20 21:48 Transfer ordered to [facility]. Diagnosis are Dissection of thoracoabdominal aorta - 3B DeBakey, Atrial fibrillation and flutter, Essential (primary) hypertension. - Reason for transfer: Higher level of care. - Accepting physician is to [facility], [facility]. - Condition is Serious. - Problem is new. - Symptoms have improved. Signatures: Dispatcher [employer] EDMS Jorgito Douglas MD MD cha Attema, Lee, SUPERVISOR TREE TRIMMING-C SUPERVISOR TREE TRIMMING-Cla1 James Carpenter RN RN mg2 Corrections: (The following items were deleted from the chart) 19:55 19:50 Lipase ordered. EDMS EDMS 20:36 19:50 CORONAVIRUS ordered. EDMS EDMS 23:30 21:48 06/04/2020 21:48 Transfer ordered to [facility]. Diagnosis is Dissection of mg2 thoracoabdominal aorta - 3B DeBakey; Atrial fibrillation and flutter; Essential (primary) hypertension. Reason for transfer: Higher level of care. Accepting physician is to [facility], [facility]. Condition is Serious. Problem is new. Symptoms have improved. zaid
[2020-06-04] MEDS ORDERED: Nicardipine/NS 25 MG/250 ML KIT IV ONE (22:07)
[2020-06-05 12:42] VITALS: TEMP 98.2
[2020-06-05 12:48] VITALS: BP 135/80; O2SAT 96
[2020-06-09 16:00] LABS: Urine Blood Trace-intact (Negative); Urine Glucose Negative (Negative); Urine Protein 1+ (Negative); Urine Specific Gravity 1.025 (1.005-1.030); Urine pH 5.5 (5.0-7.0)
== END 2020-06-04 23:30 | disposition short-term general hospital (02) ==
LOC: ER 19:30
DX: I71.03 Dissection of thoracoabdominal aorta (principal); I48.91 Unspecified atrial fibrillation; I48.92 Unspecified atrial flutter; I10 Essential (primary) hypertension; Z20.822 Contact with and (suspected) exposure to COVID-19
CPT/HCPCS: 96365; 87088; 85025; 87086; 80048; 36415; 83735; 85610; 80076; 84484; 83690; 83880; 71275; 74175; 71045; 76705; 51702; 96375; 99285; U0003; Q9967; C9113; J3010; J2405; 81003; 93005; J2270

== ENCOUNTER → 2023-03-13 | Emergency (ER) | payer OTHER ==
[~2023-03-13] MED LIST: CEPHALEXIN 250 MG CAP ONE; SMZ./TMP. 800/160 MG TABLET ONE
[2023-03-13 15:14] LABS: Absolute Lymphocytes (CBC) 0.7 K/uL (0.7-4.9); Hematocrit 36.4 % (36.0-45.0); Lymphocytes % 8.5 % (15.3-44.8); MCV 113.8 fL (80-100); MPV 8.2 fL (7.6-11.3); Platelets 334 thou/uL (152-406)
[2023-03-13 15:18] LABS: Albumin 2.7 g/dL (3.4-5.0); Bilirubin Total 0.4 mg/dL (0.2-1.0); Potassium 3.3 mEq/L (3.5-5.1); Protein, Total 7.6 g/dL (6.4-8.2)
[2023-03-13 15:21] LABS: Specific Gravity > 1.030 (1.005-1.030); Urine Bacteria None Seen /HPF (<20); Urine Bilirubin NEGATIVE (Negative); Urine Blood 1+ (Negative); Urine Clarity Extremely Turbid (Clear); Urine Color Yellow (Yellow); Urine Glucose NEGATIVE (Negative); Urine Mucus 3+ /HPF (None Seen); Urine Protein 1+ (Negative); Urine Urobilinogen 1+ (Normal)
--- NOTE | 2023-03-13 16:21 | RAD REPORT ---
EXAM DESCRIPTION: CTAbdomen Pelvis W Contrast - 03/13/2023 4:06 pm CLINICAL HISTORY: cellulitis left flank;Flank pain COMPARISON: Angio Aorta For Dissection dated 06/04/2020 TECHNIQUE: CT of the abdomen and pelvis was performed. All CT scans are performed using dose optimization technique as appropriate and may include automated exposure control or mA/KV adjustment according to patient size. FINDINGS: Lower chest: Cardiomegaly. Coronary artery calcifications. Small nodular opacity in the li ngula is unchanged from prior and benign. Liver: No acute abnormality or suspicious lesions. Biliary: No biliary ductal dilatation. Stomach: No significant focal abnormality. Duodenum: No significant focal abnormality. Pancreas: No significant abnormality. Spleen: No significant abnormality. Adrenal: No suspicious lesions. Kidney/ureter: No hydronephrosis. No renal calculi. Retroperitoneum: No retroperitoneal adenopathy. Vascular: No aneurysm. Atherosclerosis Bowel: Colorectal anastomosis .. Peritoneum: No ascites or free air. Ventral abdominal wall laxity. Bladder: Grossly unremarkable. Reproductive: No adnexal masses. . Bones: Chronic L1 compression fracture with approximately 30% loss of height anteriorly. Multilevel d egenerative changes are present in the spine. No acute fracture . Other: Skin thickening and subcutaneous edema in the posterior abdominal wall. No fluid collection id entified. This could reflect a cellulitis. IMPRESSION: No acute intra-abdominal or pelvic finding. Posterior abdominal wall skin thickening and subcutaneous edema but no fluid collection which could reflect a cellulitis given the clinical caden rn. No acute intra-abdominal abnormality.
--- NOTE | 2023-03-13 16:27 | ER ---
Nurse's Notes [facility] Name: Jennyfer Castillo Age: 77 yrs Sex: Female : 1945 Arrival Date: 03/13/2023 Time: 13:19 Bed 20 Private MD: Diagnosis: Cellulitis of abdominal wall Presentation: 03/13 13:34 Chief complaint: Patient states: Left lower back area red, swollen, painful started ll1 yesterday. Slight lower L breast pain also. [place] hot at home. Coronavirus screen: Client denies travel out of the [place] in the last 14 days. At this time, the client does not indicate any symptoms associated with coronavirus-19. Ebola Screen: Patient denies travel to an Ebola-affected area in the 21 days before illness onset. 13:34 Method Of Arrival: Ambulatory ll1 13:36 Initial Sepsis Screen: Does the patient meet any 2 criteria? No. Patient's initial ll1 sepsis screen is negative. Does the patient have a suspected source of infection? Yes: Skin breakdown/wound. Risk Assessment: Do you want to hurt yourself or someone else? Patient reports no desire to harm self or others. Onset of symptoms was March 12, 2023. 13:36 Acuity: GWEN 3 ll1 Historical: - Allergies: 13:30 kiwi; ll1 - PMHx: 13:30 Atrial Fib; Hypertension; ll1 - Immunization history:: Adult Immunizations up to date. - Social history:: Smoking status: Patient denies any tobacco usage or history of. Screenin:22 [facility] ED Fall Risk Assessment (Adult) History of falling in the last 3 months, db including since admission No falls in past 3 months (0 pts) Confusion or Disorientation No (0 pts) Intoxicated or Sedated No (0 pts) Impaired Gait Yes (1 pt) Mobility Assist Device Used Yes (1 pt) Altered Elimination No (0 pt) Score/Fall Risk Level 0 - 2 = Low Risk Oriented to surroundings, Maintained a safe environment. Abuse screen: Denies threats or abuse. Denies injuries from another. Nutritional screening: No deficits noted. Tuberculosis screening: No symptoms or risk factors identified. Assessment: 15:22 Reassessment: Patient appears in no apparent distress at this time. Patient and/or db family updated on plan of care and expected duration. Pain level reassessed. Patient is alert, oriented x 3, equal unlabored respirations, skin warm/dry/pink. General: Appears in no apparent distress. comfortable, Behavior is calm, cooperative. Pain: Complains of pain in back. Neuro: Level of Consciousness is awake, alert, obeys commands, Oriented to person, place, time, situation. Respiratory: Airway is patent Respiratory effort is even, unlabored, Respiratory pattern is regular, symmetrical. 16:52 Reassessment: Patient appears in no apparent distress at this time. Patient and/or db family updated on plan of care and expected duration. Pain level reassessed. Patient is alert, oriented x 3, equal unlabored respirations, skin warm/dry/pink. Patient states feeling better. Patient states symptoms have improved. General: Appears in no apparent distress. comfortable, Behavior is calm, cooperative. Neuro: Level of Consciousness is awake, alert, obeys commands, Oriented to person, place, time, situation. Vital Signs: 13:38 BP 146 / 59; Pulse 76; Resp 18; Temp 98.6; Pulse Ox 98% ; Weight 98.88 kg; Height 5 ft. ll1 5 in. ; Pain 2/10; 15:35 BP 137 / 66; Pulse 58; Resp 18; Pulse Ox 98% on R/A; db 16:07 BP 142 / 47; Pulse 58; Resp 18; Pulse Ox 100% on R/A; db 13:38 Body Mass Index 36.28 (98.88 kg, 165.1 cm) ll1 13:38 Pain Scale: Adult ll1 ED Course: 13:23 Patient arrived in ED. im 13:26 Jessica Jc FNP-C is PHCP. kb 13:26 Joo Zhang DO is Attending Physician. kb 13:31 Arm band placed on. ll1 13:36 Triage completed. ll1 14:30 Leigha Angel, JOSE ALFREDO is Primary Nurse. db 14:55 Inserted saline lock: 20 gauge in right forearm, using aseptic technique. Blood db collected. 15:22 Patient has correct armband on for positive identification. Bed in low position. Call db light in reach. Side rails up X 1. Pulse ox on. NIBP on. Warm blanket given. 15:23 No provider procedures requiring assistance completed. db 16:08 CT Abd/Pelvis - IV Contrast Only In Process Unspecified. EDMS 16:53 Provided Education on: DISCHARGE. db 16:53 IV discontinued, intact, bleeding controlled, No redness/swelling at site. db Administered Medications: 16:37 Drug: Trimethoprim-Sulfamethoxazole PO (160 mg-800 mg (DS) 1 tablet PO once Route: PO; db 16:54 Follow up: Response: No adverse reaction db 16:37 Drug: Cephalexin PO 500 mg PO once Route: PO; db 16:54 Follow up: Response: No adverse reaction db Medication: 16:53 VIS not applicable for this client. db Outcome: 16:26 Discharge ordered by . tonie 16:53 Discharged to home ambulatory, db 16:53 Condition: stable 16:53 Discharge instructions given to patient, Instructed on discharge instructions, follow up and referral plans. Prescriptions given X 2, 16:54 Patient left the ED. db Signatures: Dispatcher [employer] EDAR Jessica Jc, CARRI BHAT-Simran Michelle RN RN ll1 Leigha Angel RN RN db Norma Ceballos Corrections: (The following items were deleted from the chart) 13:36 13:34 Chief complaint: Patient states: Left lower back area red, swollen, painful ll1 started yesterday. Slight lower L breast pain also. No fever ll1 16:53 16:53 IV discontinued, intact, bleeding controlled, db db
--- NOTE | 2023-03-13 16:27 | EDPHYS ---
Physician Documentation [facility] Name: Jennyfer Castillo Age: 77 yrs Sex: Female : 1945 Arrival Date: 03/13/2023 Time: 13:19 Bed 20 Private MD: ED Physician Joo Zhang HPI: 03/13 14:10 This 77 yrs old Female presents to ER via Ambulatory with complaints of Skin Problem - kb left side low back. 14:10 Patient is a 77-year-old female who presents for redness, swelling and warmth to left kb flank area that started yesterday. States she has not checked her temperature but she felt hot. Denies nausea, vomiting, diarrhea, abdominal pain, urinary symptoms. Historical: - Allergies: 13:30 kiwi; ll1 - PMHx: 13:30 Atrial Fib; Hypertension; ll1 - Immunization history:: Adult Immunizations up to date. - Social history:: Smoking status: Patient denies any tobacco usage or history of. ROS: 14:10 Constitutional: Negative for fever, chills, and weight loss, kb 14:10 Skin: Positive for erythema, swelling, of the left flank, 14:10 All other systems are negative, Exam: 14:10 Constitutional: This is a well developed, well nourished patient who is awake, alert, kb and in no acute distress. Head/Face: Normocephalic, atraumatic. ENT: Moist Mucous membranes Cardiovascular: Regular rate Respiratory: Respirations even and unlabored. No increased work of breathing. Talking in full sentences Abdomen/GI: Soft, non-tender. No distention MS/ Extremity: Pulses equal, no cyanosis. Neurovascular intact. Full, normal range of motion. Neuro: Awake and alert, GCS 15, oriented to person, place, time, and situation. Moves all extremities. Normal gait. 14:10 Skin: cellulitis, that is moderate, on the left flank, Vital Signs: 13:38 BP 146 / 59; Pulse 76; Resp 18; Temp 98.6; Pulse Ox 98% ; Weight 98.88 kg; Height 5 ft. ll1 5 in. ; Pain 2/10; 15:35 BP 137 / 66; Pulse 58; Resp 18; Pulse Ox 98% on R/A; db 16:07 BP 142 / 47; Pulse 58; Resp 18; Pulse Ox 100% on R/A; db 13:38 Body Mass Index 36.28 (98.88 kg, 165.1 cm) ll1 13:38 Pain Scale: Adult ll1 MDM: 13:26 Patient medically screened. kb 14:10 Differential diagnosis: abscess, allergic reaction, cellulitis, insect bite. Data kb reviewed: vital signs, nurses notes. 16:25 Consideration of Admission/Observation Escalation of care including kb admission/observation considered. admission considered for cellulitis, but pt is nontoxic in appearance, vital signs stable, afebrile, wbc normal. Educated on strict return precautions. Counseling: I had a detailed discussion with the patient and/or guardian regarding the historical points, exam findings, and any diagnostic results supporting the discharge/admit diagnosis, lab results, radiology results, the need for outpatient follow up, a family practitioner, to return to the emergency department if symptoms worsen or persist or if there are any questions or concerns that arise at home. 03/13 13:39 Order name: CBC with Diff kb 03/13 13:39 Order name: CMP; Complete Time: 15:21 kb 03/13 13:39 Order name: Lipase; Complete Time: 15:21 kb 03/13 13:39 Order name: Urinalysis w/ reflexes; Complete Time: 15:22 kb 03/13 13:39 Order name: CT Abd/Pelvis - IV Contrast Only; Complete Time: 16:25 kb 03/13 13:39 Order name: IV Saline Lock; Complete Time: 16:37 kb 03/13 13:39 Order name: Labs collected and sent; Complete Time: 16:37 kb Administered Medications: 16:37 Drug: Trimethoprim-Sulfamethoxazole PO (160 mg-800 mg (DS) 1 tablet PO once Route: PO; db 16:54 Follow up: Response: No adverse reaction db 16:37 Drug: Cephalexin PO 500 mg PO once Route: PO; db 16:54 Follow up: Response: No adverse reaction db Disposition: 17:53 I was immediately available on-site in the Emergency Department for consultation in the ms3 care of the patient. Disposition Summary: 03/13/23 16:26 Discharge Ordered Notes: Location: Home kb Condition: Stable kb Diagnosis - Cellulitis of abdominal wall kb Followup: kb - With: Emergency Department - When: As needed - Reason: Worsening of condition Followup: kb - With: Private Physician - When: 2 - 3 days - Reason: Recheck today's complaints, Continuance of care, Re-evaluation by your physician Discharge Instructions: - Discharge Summary Sheet kb - Cellulitis, Adult, Gnul-fd-Neef kb Forms: - Medication Reconciliation Form kb - Thank You Letter kb - Antibiotic Education kb - Prescription Opioid Use kb - Patient Portal Instructions kb - Leadership Thank You Letter kb Prescriptions: - Cephalexin 500 mg Oral Capsule - take 1 capsule ORAL route every 8 hours for 10 days; 30 capsule; Refills: 0, kb Product Selection Permitted - Bactrim DS 800-160 mg Oral Tablet - take 1 tablet ORAL route every 12 hours for 10 days; 20 tablet; Refills: 0, kb Product Selection Permitted Signatures: Dispatcher [employer] Jessica Smith, RIG MECHANIC-C RIG MECHANIC-Simran Michelle, RN RN ll1 Joo Zhang DO DO ms3 Leigha Angel, RN RN db
[2023-03-13 17:07] LABS: Blood Morphology Comment NOTED (NOT SEEN); Macrocytosis 2+; Platelet Estimate ADEQ; White Blood Cell Scan OK (OK)
[2023-03-13 18:56] VITALS: TEMP 98.6
[2023-03-13 19:17] VITALS: BP 142/47; O2SAT 100
== END ==
LOC: ER 13:19
DX: L03.311 Cellulitis of abdominal wall (principal); Z91.018 Allergy to other foods
CPT/HCPCS: 85025; 81001; 36415; 83690; 80053; 74177; 99284; Q9967

== ENCOUNTER 2023-04-03 13:56 | Inpatient (IN) | payer OTHER ==
[2023-04-03 15:55] LABS: Specific Gravity 1.023 (1.005-1.030); Urine Bacteria <20 /HPF (<20); Urine Bilirubin NEGATIVE (Negative); Urine Blood 1+ (Negative); Urine Clarity Extremely Turbid (Clear); Urine Color Yellow (Yellow); Urine Glucose NEGATIVE (Negative); Urine Mucus Slight /HPF (None Seen); Urine Protein TRACE (Negative); Urine Urobilinogen Normal (Normal); Urine pH 5.5 (5.0-7.0)
--- NOTE | 2023-04-03 16:44 | EDPHYS ---
Physician Documentation [facility] Name: Jennyfer Castillo Age: 78 yrs Sex: Female : 1945 Arrival Date: 04/03/2023 Time: 13:56 Bed 20 Private MD: ED Physician Jorgito Douglas HPI: 04/03 16:35 This 78 yrs old Female presents to ER via Ambulatory with complaints of zaid Vaginal Itching, Vaginal Pain. 16:35 The patient presents with an injury to the perineal area, perineal itching, pelvic zaid pain, urinary symptoms. Onset: The symptoms/episode began/occurred 2 week(s) ago. Modifying factors: The symptoms are alleviated by nothing, the symptoms are aggravated by walking, urinating. Associated signs and symptoms: The patient has no apparent associated signs or symptoms. Severity of symptoms: At their worst the symptoms were moderate, in the emergency department the symptoms are unchanged. The patient is not sexually active. The patient has not experienced similar symptoms in the past. Historical: - Allergies: 14:47 kiwi; cm10 - PMHx: 14:47 Atrial Fib; Hypertension; cm10 - Immunization history:: Adult Immunizations up to date. - Social history:: Smoking status: Patient denies any tobacco usage or history of. ROS: 16:36 Constitutional: Negative for fever, chills, and weight loss, Eyes: Negative for injury, zaid pain, redness, and discharge, ENT: Negative for injury, pain, and discharge, Neck: Negative for injury, pain, and swelling, Cardiovascular: Negative for chest pain, palpitations, and edema, Respiratory: Negative for shortness of breath, cough, wheezing, and pleuritic chest pain, Abdomen/GI: Negative for abdominal pain, nausea, vomiting, diarrhea, and constipation, Back: Negative for injury and pain, : Negative for injury, bleeding, discharge, and swelling, Neuro: Negative for headache, weakness, numbness, tingling, and seizure, Psych: Negative for depression, anxiety, suicide ideation, homicidal ideation, and hallucinations, Allergy/Immunology: Negative for hives, rash, and allergies, Endocrine: Negative for neck swelling, polydipsia, polyuria, polyphagia, and marked weight changes, 16:36 MS/extremity: Positive for pain, swelling, tenderness, warmth, of the pelvis, 16:36 Skin: Positive for cellulitis, of the pelvis, Exam: 16:36 Constitutional: This is a well developed, well nourished patient who is awake, alert, zaid and in no acute distress. Head/Face: Normocephalic, atraumatic. Eyes: Pupils equal round and reactive to light, extra-ocular motions intact. Lids and lashes normal. Conjunctiva and sclera are non-icteric and not injected. Cornea within normal limits. Periorbital areas with no swelling, redness, or edema. ENT: Nares patent. No nasal discharge, no septal abnormalities noted. Tympanic membranes are normal and external auditory canals are clear. Oropharynx with no redness, swelling, or masses, exudates, or evidence of obstruction, uvula midline. Mucous membranes moist. Neck: Trachea midline, no thyromegaly or masses palpated, and no cervical lymphadenopathy. Supple, full range of motion without nuchal rigidity, or vertebral point tenderness. No Meningismus. Chest/axilla: Normal chest wall appearance and motion. Nontender with no deformity. No lesions are appreciated. Cardiovascular: Regular rate and rhythm with a normal S1 and S2. No gallops, murmurs, or rubs. Normal PMI, no JVD. No pulse deficits. Respiratory: Lungs have equal breath sounds bilaterally, clear to auscultation and percussion. No rales, rhonchi or wheezes noted. No increased work of breathing, no retractions or nasal flaring. Abdomen/GI: Soft, non-tender, with normal bowel sounds. No distension or tympany. No guarding or rebound. No evidence of tenderness throughout. Back: No spinal tenderness. No costovertebral tenderness. Full range of motion. MS/ Extremity: Pulses equal, no cyanosis. Neurovascular intact. Full, normal range of motion. Neuro: Awake and alert, GCS 15, oriented to person, place, time, and situation. Cranial nerves II-XII grossly intact. Motor strength 5/5 in all extremities. Sensory grossly intact. Cerebellar exam normal. Normal gait. Psych: Awake, alert, with orientation to person, place and time. Behavior, mood, and affect are within normal limits. 16:36 : CVA tenderness, is absent, Pelvic Exam: External exam: erythema is noted, excoriation noted, Bladder: is normal, Sexual behavior: the patient is not sexually active, 16:36 Musculoskeletal/extremity: DVT Exam: No signs of deep vein thrombosis. no pain, no swelling, no tenderness, negative Homans' sign noted on exam, no appreciated bluish discoloration, no erythema, no increased warmth, 16:36 Skin: cellulitis, that is mild, that is moderate, well demarcated, on the pelvis, induration, that is mild is noted, 17:08 ECG was reviewed by the Attending Physician. zaid Vital Signs: 14:44 BP 120 / 49; Pulse 65; Resp 16 S; Temp 97.1; Pulse Ox 97% on R/A; Weight 97.52 kg; cm10 Height 5 ft. 5 in. ; Pain 8/10; 15:00 BP 117 / 51; Pulse 68; Resp 16; Pulse Ox 100% on R/A; cm10 16:00 BP 114 / 51; Pulse 62; Resp 16; Pulse Ox 98% on R/A; cm10 17:00 BP 140 / 55; Pulse 64; Resp 16; Pulse Ox 99% on R/A; cm10 18:00 BP 149 / 60; Pulse 60; Resp 18; Pulse Ox 99% on R/A; cm10 19:00 BP 133 / 49; Pulse 64; Resp 18; Pulse Ox 96% on R/A; cm10 21:27 BP 104 / 40; Pulse 51; Resp 18; Pulse Ox 98% ; cm10 21:32 BP 118 / 47; Pulse 64; Resp 16; Temp 97.1(IR); Pulse Ox 100% on R/A; Pain 6/10; cm10 14:44 Body Mass Index 35.78 (97.52 kg, 165.1 cm) cm10 14:44 Pain Scale: Adult cm10 21:32 Pain Scale: Adult cm10 Hobson Coma Score: 16:36 Eye Response: spontaneous(4). Motor Response: obeys commands(6). Verbal Response: zaid oriented(5). Total: 15. MDM: 14:11 Patient medically screened. zaid 16:38 Differential diagnosis: phillip infection, nonspecific abdominal pain, uterine zaid fibroids, urinary tract infection. Data reviewed: vital signs, nurses notes, lab test result(s), EKG, radiologic studies, CT scan, plain films. Consideration of Admission/Observation Patient was admitted/placed on observation. Escalation of care including admission/observation considered. I considered the following discharge prescriptions or medication management in the emergency department Medications were administered in the Emergency Department. See MAR. Independent interpretation of the following test(s) in the Emergency Department EKG: See my EKG interpretation above. Test considered but Not performed: Ultrasound NO ABD USG. Historians other than the Patient: Daughter/Son: DAUGHTER. Care significantly affected by the following chronic conditions: Hypertension, Obesity, A FIB. 04/03 14:11 Order name: Urinalysis w/ reflexes; Complete Time: 16:01 zaid 04/03 16:30 Order name: Basic Metabolic Panel; Complete Time: 17:32 zaid 04/03 16:30 Order name: CBC with Diff zaid 04/03 16:30 Order name: LFT's; Complete Time: 17:32 04/03 16:30 Order name: Magnesium; Complete Time: 17:32 04/03 16:30 Order name: NT PRO-BNP; Complete Time: 17:32 04/03 16:30 Order name: PT-INR; Complete Time: 17:32 zaid 04/03 16:30 Order name: Troponin HS; Complete Time: 17:32 zaid 04/03 16:30 Order name: Lipase; Complete Time: 17:32 zaid 04/03 18:58 Order name: CBC Smear Scan EDMS 04/03 20:07 Order name: Basic Metabolic Panel EDMS 04/03 20:07 Order name: Basic Metabolic Panel EDMS 04/03 20:07 Order name: CBC with Automated Diff EDMS 04/03 20:07 Order name: CBC with Automated Diff EDMS 04/03 20:07 Order name: Magnesium EDMS 04/03 20:07 Order name: Magnesium EDMS 04/03 16:30 Order name: XRAY Chest (1 view); Complete Time: 17:32 zaid 04/03 16:30 Order name: US Extremity Venous W Compression Javier; Complete Time: 18:57 zaid 04/03 16:36 Order name: CT Chest Abdomen Pelvis W/O Contrast; Complete Time: 18:57 04/03 16:30 Order name: EKG; Complete Time: 16:30 04/03 16:30 Order name: Cardiac monitoring; Complete Time: 21:58 04/03 16:30 Order name: EKG - Nurse/Tech; Complete Time: 16:54 04/03 16:30 Order name: IV Saline Lock; Complete Time: 16:45 [facility] 04/03 16:30 Order name: Labs collected and sent; Complete Time: 16:45 [facility] 04/03 16:30 Order name: O2 Per Protocol; Complete Time: 16:45 [facility] 04/03 16:30 Order name: O2 Sat Monitoring; Complete Time: 16:45 [facility] 04/03 16:41 Order name: Misc. Order: PURE WICK; Complete Time: 17:45 [facility] EC:08 Rate is 66 beats/min. Rhythm is irregularly irregular. QRS [place] is Normal. HI interval zadi is normal. QRS interval is normal. QT interval is normal. No Q waves. T waves are Normal. Clinical impression: Atrial Fibrillation and No evidence of ischemia. Interpreted by me. Reviewed by me. Administered Medications: 17:06 Drug: NS 0.9% IV 500 ml IV at bolus once Route: IV; Rate: bolus; Site: left forearm; cm10 18:19 Follow up: Response: No adverse reaction; IV Status: Completed infusion; IV Intake: cm10 500ml 17:06 Drug: NS 0.9% IV 1000 ml IV at 125 ml/hr continuous Route: IV; Rate: 125 ml/hr; Site: cm10 left forearm; 22:10 Follow up: Response: No adverse reaction; IV Status: Completed infusion; IV Intake: cm10 500ml 17:06 Drug: ceFAZolin IVPB 2 grams IVPB once over 30 mins; (mix in 100 mL NS) Route: IVPB; cm10 Infused Over: 30 mins; Site: left forearm; 17:50 Follow up: Response: No adverse reaction; IV Status: Completed infusion; IV Intake: cm10 100ml 17:41 Drug: Fluconazole PO 200 mg PO once Route: PO; cm10 18:20 Follow up: Response: No adverse reaction cm10 18:19 Drug: Nystatin-Triamcinolone Topical Cream 1 application Topical once Route: Topical; cm10 Site: affected area; 18:19 Drug: morphine IVP or IV 2 mg IVP once over 4 mins Route: IVP; Infused Over: 4 mins; cm10 Site: left forearm; 19:23 Follow up: Response: No adverse reaction cm10 18:19 Drug: Ondansetron IVP 4 mg IVP once; over 2 minutes Route: IVP; Site: left forearm; cm10 19:22 Follow up: Response: No adverse reaction cm10 Disposition Summary: 04/03/23 16:43 Hospitalization Ordered Notes: Hospitalization Status: Inpatient Admission zaid Provider: Mohit Gamez cha Location: Telemetry/MedSurg (Inpatient) zaid Condition: Stable zaid Problem: new zaid Symptoms: have improved zaid Bed/Room Type: Standard [facility] Room Assignment: 221(04/03/23 21:47) as6 Diagnosis - Cellulitis of other parts of limb - BILATERAL GROIN zaid - UTI/ Urinary tract infection, site not specified zaid - Erythema intertrigo zaid - Obesity due to excess calories zaid - care home (current) use of anticoagulants zaid - Persistent atrial fibrillation zaid Forms: - Medication Reconciliation Form zaid - SBAR form zaid - Leadership Thank You Letter zaid Signatures: Dispatcher [employer] Jorgito Loja MD MD cha Attema, Lee, PAN SHAKER-C PAN SHAKER-Cla1 Romel Vitale RN RN as6 Bianca Ann RN RN cm10 Corrections: (The following items were deleted from the chart) 21:47 16:43 zaid as6
--- NOTE | 2023-04-03 16:44 | ER ---
Nurse's Notes [facility] Name: Jennyfer Castillo Age: 78 yrs Sex: Female : 1945 Arrival Date: 04/03/2023 Time: 13:56 Bed 20 Private MD: Diagnosis: Cellulitis of other parts of limb-BILATERAL GROIN;UTI/ Urinary tract infection, site not specified;Erythema intertrigo;Obesity due to excess calories;intermediate project manager (current) use of anticoagulants;Persistent atrial fibrillation Presentation: 04/03 14:44 Chief complaint: Patient states: Vaginal swelling, redness and itching onset 2 weeks cm10 ago. pt states that she was recently on ABX for 16 days for cellulitis. Pt states that the redness and itching began after completing the first round of ABX. Coronavirus screen: Vaccine status: Patient reports receiving the 2nd dose of the covid vaccine. Client denies travel out of the [place] in the last 14 days. Ebola Screen: Patient denies travel to an Ebola-affected area in the 21 days before illness onset. No symptoms or risks identified at this time. Initial Sepsis Screen: Does the patient meet any 2 criteria? No. Patient's initial sepsis screen is negative. Does the patient have a suspected source of infection? No. Patient's initial sepsis screen is negative. Risk Assessment: Do you want to hurt yourself or someone else? Patient reports no desire to harm self or others. Onset of symptoms was April 03, 2023. 14:44 Method Of Arrival: Ambulatory cm10 14:44 Acuity: GWEN 4 cm10 Triage Assessment: 14:48 General: Appears in no apparent distress. comfortable, Behavior is calm, cooperative. cm10 Pain: Complains of pain in Vagina. EENT: No deficits noted. No signs and/or symptoms were reported regarding the EENT system. Neuro: No deficits noted. Level of Consciousness is awake, alert, obeys commands, Oriented to person, place, time, situation. Cardiovascular: No deficits noted. Denies chest pain, shortness of breath, Patient's skin is warm and dry. Respiratory: No deficits noted. Airway is patent Respiratory effort is even, unlabored, Respiratory pattern is regular, symmetrical. GI: No deficits noted. No signs and/or symptoms were reported involving the gastrointestinal system. : No deficits noted. No signs and/or symptoms were reported regarding the genitourinary system. Reports vaginal itching, since 2 weeks. Derm: No deficits noted. No signs and/or symptoms reported regarding the dermatologic system. Skin is intact, Skin is pink, warm \T\ dry. Musculoskeletal: No deficits noted. Range of motion: intact in all extremities. Historical: - Allergies: 14:47 kiwi; cm10 - PMHx: 14:47 Atrial Fib; Hypertension; cm10 - Immunization history:: Adult Immunizations up to date. - Social history:: Smoking status: Patient denies any tobacco usage or history of. Screenin:49 [facility] ED Fall Risk Assessment (Adult) History of falling in the last 3 months, cm10 including since admission No falls in past 3 months (0 pts) Confusion or Disorientation No (0 pts) Intoxicated or Sedated No (0 pts) Impaired Gait Yes (1 pt) Mobility Assist Device Used Yes (1 pt) Altered Elimination No (0 pt) Score/Fall Risk Level 0 - 2 = Low Risk Oriented to surroundings, Maintained a safe environment, Hourly rounding (assess needs \T\ fall precautionary measures) done. Abuse screen: Denies threats or abuse. Denies injuries from another. Nutritional screening: No deficits noted. Tuberculosis screening: No symptoms or risk factors identified. Assessment: 14:51 Reassessment: See triage assessment. Pt made aware that urine sample was needed. cm10 18:20 Derm: Rash noted that is red, on pelvis. cm10 18:21 Reassessment: Patient appears in no apparent distress at this time. No changes from cm10 previously documented assessment. Patient and/or family updated on plan of care and expected duration. Pain level reassessed. Patient is alert, oriented x 3, equal unlabored respirations, skin warm/dry/pink. 21:26 Reassessment: Pt reports that she took her home medication of Metoprolol. Pt states cm10 that she is having pain at this time. Pt to be medicated per MAR. Vital Signs: 14:44 BP 120 / 49; Pulse 65; Resp 16 S; Temp 97.1; Pulse Ox 97% on R/A; Weight 97.52 kg; cm10 Height 5 ft. 5 in. ; Pain 8/10; 15:00 BP 117 / 51; Pulse 68; Resp 16; Pulse Ox 100% on R/A; cm10 16:00 BP 114 / 51; Pulse 62; Resp 16; Pulse Ox 98% on R/A; cm10 17:00 BP 140 / 55; Pulse 64; Resp 16; Pulse Ox 99% on R/A; cm10 18:00 BP 149 / 60; Pulse 60; Resp 18; Pulse Ox 99% on R/A; cm10 19:00 BP 133 / 49; Pulse 64; Resp 18; Pulse Ox 96% on R/A; cm10 21:27 BP 104 / 40; Pulse 51; Resp 18; Pulse Ox 98% ; cm10 21:32 BP 118 / 47; Pulse 64; Resp 16; Temp 97.1(IR); Pulse Ox 100% on R/A; Pain 6/10; cm10 14:44 Body Mass Index 35.78 (97.52 kg, 165.1 cm) cm10 14:44 Pain Scale: Adult cm10 21:32 Pain Scale: Adult cm10 Austin Coma Score: 16:36 Eye Response: spontaneous(4). Motor Response: obeys commands(6). Verbal Response: zaid oriented(5). Total: 15. ED Course: 13:59 Patient arrived in ED. rg4 14:11 Jorgito Douglas MD is Attending Physician. zaid 14:34 Bianca Ann, JOSE ALFREDO is Primary Nurse. cm10 14:47 Triage completed. cm10 14:49 Arm band placed on Patient placed in an exam room, on a stretcher. cm10 14:49 Patient has correct armband on for positive identification. Bed in low position. Call cm10 light in reach. Side rails up X2. Provided Education on: ER process and procedures.. Pulse ox on. NIBP on. Warm blanket given. 15:28 Assisted to bathroom. cm10 15:36 Urinalysis w/ reflexes Sent. cm10 16:30 Assist provider with pelvic exam:. cm10 16:42 Mohit Gamez MD is Hospitalizing Provider. zaid 16:44 XRAY Chest (1 view) In Process Unspecified. EDMS 16:45 Initial lab(s) drawn, by wi, sent to lab. Inserted saline lock: 22 gauge in left cm10 forearm, using aseptic technique. Blood collected. 16:46 Basic Metabolic Panel Sent. cm10 16:46 CBC with Diff Sent. cm10 16:46 LFT's Sent. cm10 16:46 Magnesium Sent. cm10 16:46 NT PRO-BNP Sent. cm10 16:46 PT-INR Sent. cm10 16:46 Troponin HS Sent. cm10 16:55 EKG done, by ED staff, reviewed by Jorgito Douglas MD. mv 17:31 US Extremity Venous W Compression Javier In Process Unspecified. EDMS 17:51 CT Chest Abdomen Pelvis W/O Contrast In Process Unspecified. EDMS 18:20 Pure-wick placed at this time. cm10 22:10 Patient admitted, IV remains in place. cm10 Administered Medications: 17:06 Drug: NS 0.9% IV 500 ml IV at bolus once Route: IV; Rate: bolus; Site: left forearm; cm10 18:19 Follow up: Response: No adverse reaction; IV Status: Completed infusion; IV Intake: cm10 500ml 17:06 Drug: NS 0.9% IV 1000 ml IV at 125 ml/hr continuous Route: IV; Rate: 125 ml/hr; Site: cm10 left forearm; 22:10 Follow up: Response: No adverse reaction; IV Status: Completed infusion; IV Intake: cm10 500ml 17:06 Drug: ceFAZolin IVPB 2 grams IVPB once over 30 mins; (mix in 100 mL NS) Route: IVPB; cm10 Infused Over: 30 mins; Site: left forearm; 17:50 Follow up: Response: No adverse reaction; IV Status: Completed infusion; IV Intake: cm10 100ml 17:41 Drug: Fluconazole PO 200 mg PO once Route: PO; cm10 18:20 Follow up: Response: No adverse reaction cm10 18:19 Drug: Nystatin-Triamcinolone Topical Cream 1 application Topical once Route: Topical; cm10 Site: affected area; 18:19 Drug: morphine IVP or IV 2 mg IVP once over 4 mins Route: IVP; Infused Over: 4 mins; cm10 Site: left forearm; 19:23 Follow up: Response: No adverse reaction cm10 18:19 Drug: Ondansetron IVP 4 mg IVP once; over 2 minutes Route: IVP; Site: left forearm; cm10 19:22 Follow up: Response: No adverse reaction cm10 Medication: 14:49 VIS not applicable for this client. cm10 Intake: 17:50 IV: 100ml; Total: 100ml. cm10 18:19 IV: 500ml; Total: 600ml. cm10 22:10 IV: 500ml; Total: 1100ml. cm10 Outcome: 16:43 Decision to Hospitalize by Provider. zaid 22:10 Admitted to Med/surg accompanied by tech, via wheelchair, room 221, Report called to favian Viera RN 22:10 Condition: good 22:10 Instructed on the need for admit, 22:20 Patient left the ED. cm10 Signatures: Dispatcher [employer] EDJorgito Dobson MD MD cha Garcia, Rubi rg4 Bianca Ann RN RN Genesis Alex Corrections: (The following items were deleted from the chart) 14:51 14:50 Reassessment: See triage assessment. Pt made aware that urine sample was needed. cm10 Reassessment: See triage assessment. Pt made aware that urine sample was needed. cm10
[2023-04-03] MEDS ORDERED: NA CHLORIDE 0.9% 1,000 ML ONE (16:49)
[2023-04-03] MEDS ORDERED: NA CHLORIDE 0.9% 100 ML ONE (16:49)
[2023-04-03] MEDS ORDERED: FLUCONAZOLE 100 MG TAB ONE (16:49)
[2023-04-03] MEDS ORDERED: NYSTATIN 100MU/GM CREAM 15GM TOP ONE (16:49)
[2023-04-03] MEDS ORDERED: CEFAZOLIN SODIUM 2 GM/VIAL ONE (16:50)
[2023-04-03 17:13] LABS: Absolute Lymphocytes (CBC) 0.5 K/uL (0.7-4.9); Hematocrit 32.8 % (36.0-45.0); Lymphocytes % 6.4 % (15.3-44.8); MCV 114.1 fL (80-100); MPV 7.7 fL (7.6-11.3); Platelets 395 thou/uL (152-406); Protime INR 2.95; RBC Red Blood Cell Count 2.87 M/uL (3.86-4.86)
[2023-04-03 17:18] LABS: Albumin 2.7 g/dL (3.4-5.0); Bilirubin Direct 0.1 mg/dL (0-0.2); Bilirubin Indirect, Calculated 0.3 mg/dL (0.2-0.8); Bilirubin Total 0.4 mg/dL (0.2-1.0); Magnesium 1.4 mg/dL (1.6-2.4); Potassium 4.2 mEq/L (3.5-5.1); Protein, Total 7.3 g/dL (6.4-8.2); Troponin High Sensitivity 9.4 pg/mL (<58.9)
--- NOTE | 2023-04-03 17:26 | RAD REPORT ---
EXAM DESCRIPTION: RAD - Chest Single View - 04/03/2023 4:42 pm CLINICAL HISTORY: COUGH Chest pain. COMPARISON: Chest Single View dated 06/04/2020; Abdomen 1 View (KUB) dated 07/19/2018; CHEST PA AND LAT 2 VIEW dated 11/15/2011; CHEST SINGLE VIEW dated 10/29/2011 FINDINGS: Portable technique limits examination quality. The lungs are grossly clear. The heart is moderately enlarged in size. No displaced fractures.
[2023-04-03] MEDS ORDERED: ONDANSETRON 4 MG/2 ML VIAL ONE (17:29)
[2023-04-03] MEDS ORDERED: MORPHINE 2 MG/ML SYR ONE (17:29)
--- NOTE | 2023-04-03 17:35 | RAD REPORT ---
EXAM DESCRIPTION: US - Extrem Venous W Compress Javier - 04/03/2023 5:29 pm CLINICAL HISTORY: Pain;Swelling Bilateral leg edema and swelling. COMPARISON: No comparisons TECHNIQUE: Real-time sonographic interrogation of the left and right lower extremity deep venous sys tems was performed. FINDINGS: Normal compressibility, flow augmentation, phasic flow and spontaneous flow is identified in both the left and right lower extremity deep venous systems. IMPRESSION: No sonographic evidence of left or right lower extremity deep venous thrombosis.
--- NOTE | 2023-04-03 18:04 | RAD REPORT ---
EXAM DESCRIPTION: CT - Chest Abd Pelvis Wo Con - 04/03/2023 5:50 pm CLINICAL HISTORY: Chest and abdomen pain. Abdominal distention;Dyspnea COMPARISON: CTANGIO CHEST FOR PE dated 10/28/2011 TECHNIQUE: A limited noncontrast study was performed. All CT scans are performed using dose optimization technique as appropriate and may include automated exposure control or mA/KV adjustment according to patient size. FINDINGS: The lungs are clear.No pleural or pericardial effusion.No intrathoracic adenopathy.Heart s ize is mildly enlarged. The liver, spleen, pancreas, adrenal glands and kidneys are within normal limits. No bowel obstruction, free air, free fluid or abscess. Normal appendix. Postsurgical changes are pres ent in the rectum. No pathologic lymphadenopathy in the abdomen or pelvis. Limited assessment of the vaginal and shows no gross unexpected finding. Mild skin thickening may be present in the region. Mild multilevel degenerative changes are present. IMPRESSION: No acute abnormality is identified.
[2023-04-03 18:57] LABS: Platelet Estimate ADEQ; White Blood Cell Scan OK (OK)
[2023-04-03 18:58] LABS: Blood Morphology Comment NOT SEEN (NOT SEEN)
[2023-04-03] MEDS ORDERED: ONDANSETRON 4 MG/2 ML VIAL IV PRN (19:59)
--- NOTE | 2023-04-03 20:06 | P.HP ---
Certification for Inpatient Patient admitted to: Inpatient With expected LOS: >2 Midnights Practitioner: I am a practitioner with admitting privileges, knowledge of patient current condition, hospital course, and medical plan of care. Services: Services provided to patient in accordance with Admission requirements found in Title 42 Section 412.3 of the Code of Federal Regulations Patient History Date of Service: 04/04/23 Reason for admission: Vaginal itch, UTI. History of Present Illness: 78-year-old female patient with medical history significant for hypertension, atrial fibrillation, and history of diverticulitis was evaluated for episode of vulvovaginal itching excoriation and weepy lesions in the vaginal area with associated burning on urination. This has been going on for a couple of days. She denies overt episode of diarrhea, nausea, vomiting. She had lab work done that revealed possible UTI with significant leukocyte esterase and WBC in the urine. She was given a dose of fluconazole and she was started on IV antibiotic therapy and admitted for inpatient care after cultures were taken. Allergies kiwi Allergy (Severe, Verified 04/03/23 23:42) Throat swells Home Medications: Escitalopram [Lexapro] 10 mg PO DAILY 10/29/11 Metoprolol Tartrate 100 mg PO BID 10/29/11 ALPRAZolam [Xanax*] 1 tab PO BIDP PRN 03/18/19 Dabigatran Etexilate Mesylate [Pradaxa*] 1 tab PO BID 03/18/19 Omeprazole [Prilosec] 1 tab PO DAILY 03/18/19 Valsartan/Hydrochlorothiazide [Valsartan-Hctz 320-12.5 mg Tab] 1 tab PO DAILY 03/18/19 Folic Acid 1 mg PO DAILY #90 tablet 03/20/19 Thiamine HCl 100 mg PO DAILY #90 tablet 03/20/19 - Past Medical/Surgical History Diabetic: No -: HTN -: Afib -: diverticulitis -: small bowel resection -: left tendon, broken ankle-surgery - Family History Father -: Heart disease, Diabetes, Cancer Notes: Afib, prostate CA Mother Notes: brain tumor - Social History Alcohol use: Yes CD- Drugs: No Caffeine use: Yes Review of Systems General: Malaise Eyes: Unremarkable ENT: Unremarkable Respiratory: Unremarkable Cardiovascular: Unremarkable Gastrointestinal: Unremarkable Genitourinary: Dysuria, As per HPI Musculoskeletal: Unremarkable Integumentary: Unremarkable Neurological: Unremarkable Lymphatics: Unremarkable Physical Examination - Physical Exam General: Alert, Oriented x3 HEENT: Atraumatic Neck: Supple Respiratory: Normal air movement Cardiovascular: Normal pulses, Regular rate/rhythm Gastrointestinal: Soft and benign Musculoskeletal: No swelling Neurological: Normal speech, Normal strength at 5/5 x4 extr - Studies Laboratory Data (last 24 hrs) 04/03/23 04/03/23 04/03/23 16:45 16:45 16:45 WBC 7.90 Hgb 11.4 L Hct 32.8 L Plt Count 395 PT 31.4 H INR 2.95 Sodium 135 L Potassium 4.2 BUN 18 Creatinine 0.82 Glucose 119 H Magnesium 1.4 L Total Bilirubin 0.4 AST 11 L ALT 15 Alkaline Phosphatase 150 H Lipase 66 Assessment and Plan - Plan Vulvovaginitis: Deemed secondary to yeast infection. Fluconazole dose given. Urine culture taken. Will continue topical nystatin powder for further management. UTI: Urine culture obtained after urine analysis was concerning. Continue empiric cefepime therapy pending further review. Hypertension: We will monitor vital signs per unit protocol and continue home antihypertensive medications if she meets criteria. Goal blood pressures less than 130/80 mmHg Chronic atrial fibrillation: Will continue anticoagulation and rate control medications. Prophylaxis: Lovenox for DVT prophylaxis CODE STATUS: Full code Disposition: We will treat vulvovaginitis and UTI and she will be discharged once plan of care is finalized. - Advance Directives Does patient have a Living Will: No Does patient have a Durable POA for Healthcare: No
[2023-04-03 22:42] VITALS: BMI 36.4
[2023-04-03] MEDS: NA CHLORIDE 0.9% 1,000 ML IV SCH (22:51)
[2023-04-03] MEDS: INSULIN REGULAR (HUMAN) 100 UNIT/ML SQ SCH (22:52)
[2023-04-04] MEDS: NA CHLORIDE 0.9% 1,000 ML IV SCH (06:01)
[2023-04-04 07:20] LABS: Absolute Lymphocytes (CBC) 0.6 K/uL (0.7-4.9); Hematocrit 28.7 % (36.0-45.0); Lymphocytes % 9.6 % (15.3-44.8); MCV 114.6 fL (80-100); MPV 7.7 fL (7.6-11.3); Platelets 356 thou/uL (152-406)
[2023-04-04] MEDS: INSULIN REGULAR (HUMAN) 100 UNIT/ML SQ SCH (07:30)
[2023-04-04 07:41] LABS: Magnesium 1.3 mg/dL (1.6-2.4); Potassium 3.8 mEq/L (3.5-5.1)
--- NOTE | 2023-04-04 08:13 | P.PN ---
Date of Service: 04/04/23 Subjective: Reports seen in ED 03/13/23. discharged with cephalexin / bactrim. Also noted to be prescribed cipro 03/23/23 reports weeping / itchyness / burning sensation of vulvovaginal lesions denies n/v/d afebrile ROS: 10 point ROS as noted above, otherwise negative Physical Exam: GEN: Alert, oriented, NAD HEENT: Normal conjunctiva, sclera anicteric, CV: Regular rate and rhythm, no edema Pulm: Nonlabored respirations on room air, clear bilaterally ABD: soft, nontender, nondistended Integumentary: erythema in folds of groin, overlying vulva /upper thighs; tender Neuro: Normal speech, normal affect Problem List: Vulvovaginitis, likely secondary to yeast infection chronic a-fib, on anticoagulation Hypertension h/o diverticulitis Vulvovaginitis, likely secondary to yeast infection Seen in ED 03/13/23 for similar episode. Failed outpatient therapy on PO cephalexin / bactrim (x10 days) Also failed therapy on ciprofloxacin x10 days; filled 03/23/[address] chest/abd (04/03): no acute abnormalities. Venous u/s (04/03): no DVT Given IV cefazolin / fluconazole in ED. Blood cx (04/04): pending Urine cx (04/04): pending Continue empiric cefepime (04/04-) Continue nystatin topical (04/04-) ID consulted - will discuss with ID whether stopping antibiotics / adding oral diflucan PRN analgesics / antiemetics continue IV fluids confirm home meds, restart as appropriate chronic a-fib, on anticoagulation Takes xarelto at home HR low-normal and BP low to low-normal; restart half dose metoprolol Hypertension confirm home meds, restart as appropriate VTE: Lovenox Code: Full Dispo: Home, ~2 days pending cx results, ID recs
[2023-04-04] MEDS: CEFEPIME 1 GM in NA CHLORIDE 0.9% 100 ML IV SCH ×2 (08:34→20:09)
[2023-04-04] MEDS ORDERED: ENOXAPARIN 40 MG/0.4 ML SQ SCH (09:00)
--- NOTE | 2023-04-04 09:46 | P.CNS ---
Date of Consult: 04/04/23 Reason for Consult: cellulitis, intertrigo Chief Complaint: Vaginal itch, UTI. History of Present Illness: Patient is a 78 year old female with a medical history of hypertension, atrial fibrillation and diverticulitis who presented to the ED with complaints of vaginal/groin itching, exoriation, redness, pain/burning. She reports recently being treated with oral antibiotics for cellulitis on 03/13 with cephalexin and bactrim, then prescribed ciprofloxacin on 03/23. During Ciprofloxacin, patient reports developing rash of groin and vulvovaginal areas which she reports as itching, burning and painful. Infectious disease was consulted. Allergies kiwi Allergy (Severe, Verified 04/03/23 23:42) Throat swells Home medications list reviewed: Yes Home Medications: Escitalopram [Lexapro] 10 mg PO DAILY 10/29/11 Metoprolol Tartrate 100 mg PO BID 10/29/11 ALPRAZolam [Xanax*] 1 tab PO BIDP PRN 03/18/19 Dabigatran Etexilate Mesylate [Pradaxa*] 1 tab PO BID 03/18/19 Omeprazole [Prilosec] 1 tab PO DAILY 03/18/19 Valsartan/Hydrochlorothiazide [Valsartan-Hctz 320-12.5 mg Tab] 1 tab PO DAILY 03/18/19 Folic Acid 1 mg PO DAILY #90 tablet 03/20/19 Thiamine HCl 100 mg PO DAILY #90 tablet 03/20/19 NIFEdipine [Nifedipine ER] 30 mg PO DAILY 04/04/23 Rivaroxaban [Xarelto] 20 mg PO DAILY 04/04/23 - Past Medical/Surgical History Diabetic: No -: HTN -: Afib -: diverticulitis -: small bowel resection -: left tendon, broken ankle-surgery - Family History Father Medical History: Heart disease, Diabetes, Cancer Notes: Afib, prostate CA Mother Notes: brain tumor - Social History Smoking Status: Never smoker Alcohol use: Yes CD- Drugs: No Caffeine use: Yes Place of Residence: Home Review of Systems 10-point ROS is otherwise unremarkable Integumentary: As per HPI Physical Examination Temp Pulse Resp BP Pulse Ox 98.3 F 70 16 137/48 L 91 04/04/23 08:00 04/04/23 08:00 04/04/23 08:00 04/04/23 08:00 04/04/23 08:00 General: Alert, In no apparent distress, Oriented x3 HEENT: Atraumatic, Normocephalic Respiratory: Clear to auscultation bilaterally, Normal air movement Cardiovascular: No edema, Regular rate/rhythm Gastrointestinal: Normal bowel sounds, Non-distended, No tenderness Integumentary: Other (erythema/excoriation of groin, vulva, thighs) Neurological: Normal speech, Normal tone, Normal affect Laboratory Data - Reviewed Microbiology Data - Reviewed Imagings Data: - Reviewed Conclusions/Impression: Problem List Fungal dermatitis Vulvovaginitis Atrial fibrillation Hypertension Fungal dermatitis Vulvovaginitis - Blood and urine cultures pending - On Nystatin powder - On Fluconazole (started 04/03) No leukocytosis afebrile Recommendations - Follow up with urine and blood culture reports. If negative, discontinue Cefepime - fungal dermatitis: Continue fluconazole x 5-7 days. Cleanse affected area with mild soap and water, pat dry, then apply nystatin powder; to be done twice daily x 2 weeks. - Follow up with PCP as outpatient in 1-2 weeks. Case discussed with Mirna Brush
[2023-04-04 10:23] VITALS: O2SAT 91
[2023-04-04] MEDS: ACETAMINOPHEN 325 MG TABLET PO PRN ×2 (11:21→20:59)
[2023-04-04] MEDS: FLUCONAZOLE 100 MG TAB PO SCH (12:47)
[2023-04-04] MEDS ORDERED: RIVAROXABAN 20 MG TABLET PO SCH (17:00)
[2023-04-04] MEDS: NYSTATIN PWDR 100000 UNIT/GM TOP SCH ×2 (17:03→20:55)
[2023-04-04] MEDS: METOPROLOL TAR 50 MG TAB PO SCH (20:08)
--- NOTE | 2023-04-05 07:52 | P.PN ---
Date of Service: 04/05/23 Subjective: Feeling better today, wanting to go home vaginal pain / erythema improving slowly. +Not as tender today no nausea / vomiting afebrile ROS: 10 point ROS as noted above, otherwise negative Physical Exam: GEN: Alert, oriented, NAD HEENT: Normal conjunctiva, sclera anicteric, CV: Regular rate and rhythm, no edema Pulm: Nonlabored respirations on room air, clear bilaterally ABD: soft, nontender, nondistended Integumentary: erythema in folds of groin improving, overlying vulva /upper thighs; less tender Neuro: Normal speech, normal affect Problem List: Vulvovaginitis, likely secondary to yeast infection chronic a-fib, on anticoagulation Hypertension h/o diverticulitis Vulvovaginitis, likely secondary to yeast infection Seen in ED 03/13/23 for similar episode. Failed outpatient therapy on PO c ephalexin / bactrim (x10 days) Also failed therapy on ciprofloxacin x10 days; filled 03/23/[address] chest/abd (04/03): no acute abnormalities. Venous u/s (04/03): no DVT Given IV cefazolin / fluconazole in ED. Blood cx (04/04): pending Urine cx (04/04): prelim mixed erik Continue empiric cefepime (04/04-) Continue nystatin topical (04/04-04/18); continue x2 weeks total per ID PO fluconazole added (04/04-04/10); continue for 5-7 days total per ID follow cultures. If negative dc antibiotics per ID ID following PRN analgesics / antiemetics chronic a-fib, on anticoagulation HR low-normal and BP low to low-normal; continue half dose metoprolol continue xarelto Hypertension confirm home meds, restart as appropriate VTE: home Xarelto Code: Full Dispo: Home, within 24hrs pending cx results
[2023-04-05] MEDS: FLUCONAZOLE 100 MG TAB PO SCH (08:33)
[2023-04-05] MEDS: METOPROLOL TAR 50 MG TAB PO SCH (08:33)
[2023-04-05] MEDS: NYSTATIN PWDR 100000 UNIT/GM TOP SCH (08:34)
[2023-04-05] MEDS: CEFEPIME 1 GM in NA CHLORIDE 0.9% 100 ML IV SCH (08:34)
[2023-04-05] MEDS: ACETAMINOPHEN 325 MG TABLET PO PRN (08:37)
[2023-04-05] MEDS ORDERED: ESCITALOPRAM 20 MG TAB PO SCH (09:00)
--- NOTE | 2023-04-05 09:53 | P.PN ---
Date of Service: 04/05/23 Chief Complaint: Vaginal itch, UTI. Subjective: Improving. In no apparent distress. No acute events overnight. patient reports improvement in vaginal/groin itching and pain. Physical Examination Temp Pulse Resp BP Pulse Ox 97.2 F 66 18 120/50 L 94 04/05/23 08:00 04/05/23 08:00 04/05/23 08:00 04/05/23 08:00 04/05/23 08:00 General: Alert, In no apparent distress, Oriented x3 HEENT: Atraumatic, Normocephalic Respiratory: Clear to auscultation bilaterally, Normal air movement Cardiovascular: No edema, Regular rate/rhythm Gastrointestinal: Normal bowel sounds, Non-distended, No tenderness Integumentary: erythema of bilateral groin,vulva Neurological: Normal speech, Normal tone, Normal affect Laboratory Data - Reviewed Microbiology Data - Reviewed Imagings Data: - Reviewed Medications List: Reviewed Assessment and Plan Problem List Fungal dermatitis Vulvovaginitis Atrial fibrillation Hypertension Fungal dermatitis Vulvovaginitis - urine culture 04/04: mixed erik - On Nystatin powder - On Fluconazole (started 04/03) No leukocytosis afebrile Blood cultures 04/04: no growth to date Recommendations - urine culture mixed erik, denies any urinary symptoms. blood cultures with no growth to date. Discontinue Cefepime. - fungal dermatitis: Continue fluconazole PO x 7 days. Continue nystatin powder x 14 days. Cleanse affected area with mild soap and water, pat dry, then apply nystatin powder; to be done twice daily x 2 weeks. - Follow up with PCP as outpatient in 1-2 weeks. Case discussed with Mirna Brush
[2023-04-05 12:51] VITALS: BP 138/63; TEMP 97.7
[2023-04-05 13:00] LABS: Absolute Lymphocytes (CBC) 0.5 K/uL (0.7-4.9); Hematocrit 32.4 % (36.0-45.0); Lymphocytes % 6.9 % (15.3-44.8); MCV 114.5 fL (80-100); MPV 7.5 fL (7.6-11.3); Platelets 383 thou/uL (152-406); RBC Red Blood Cell Count 2.83 M/uL (3.86-4.86)
[2023-04-05 13:18] LABS: Magnesium 1.4 mg/dL (1.6-2.4); Potassium 3.8 mEq/L (3.5-5.1)
--- NOTE | 2023-04-05 13:28 | EKG ---
Test Date: 2023-04-03 Test Time: 16:52:39 Director Supply Chain: MAIK MEASUREMENT RESULTS: Intervals: Rate: 66 MS: QRSD: 92 QT: 408 QTc: 427 [place]: P: MS: QRS: 23 T: -81 INTERPRETIVE STATEMENTS: Atrial fibrillation Nonspecific ST and T wave abnormality Abnormal ECG Compared to ECG 06/04/2020 19:58:19 No significant changes Electronically Signed On 04-05-23 13:23:14 ASSOCIATE PROPERTY MANAGER by Will Ann
[2023-04-05 14:03] LABS: Blood Morphology Comment NOTED (NOT SEEN); Macrocytosis 2+; Platelet Estimate ADEQ; Polychromasia 1+; White Blood Cell Scan OK (OK)
--- NOTE | 2023-04-05 14:41 | P.DS ---
Admission Date: 04/03/23 Discharge Date: 04/05/23 Disposition: ROUTINE DISCHARGE Discharge Condition: GOOD Reason for Admission: Vaginal itch, UTI. Consultations: ID - Dr. Quiroz Brief History of Present Illness: 78yo F, PMH: hypertension, atrial fibrillation, and history of diverticulitis Patient was evaluated for episode of vulvovaginal itching excoriation and weepy lesions in the vaginal area with associated burning on urination. This has been going on for a couple of days. She denies overt episode of diarrhea, nausea, vomiting. She had lab work done that revealed possible UTI with significant leukocyte esterase and WBC in the urine. She was given a dose of fluconazole and she was started on IV antibiotic therapy and admitted for inpatient care after cultures were taken. Hospital Course: Problem List: Vulvovaginitis, secondary to yeast infection chronic a-fib, on anticoagulation Hypertension h/o diverticulitis Patient presented with vulvovaginal itching excoriation and weepy lesions, burning sensation when urinating. Suspect vulvovaginitis, likely secondary to yeast infection. CT chest/abd negative for any acute findings. Venous ultrasound negative for DVT. Patient noted to fail outpatient therapy on multiple antibiotics over the last 2 weeks. (Cephalexin / bactrim filled 03/13 for 10 days and ciprofloxacin filled 03/23 for 10 days). ID was consulted. Patient was given empiric cefepime and diflucan and had improvement of her symptoms. Blood cultures without growth since 04/04. Urine culture preliminary with mixed erik (between 10k-100k CFU/ML). Patient is to complete 7 more days of PO diflucan on discharge. Continue nystatin powder for 12 more days for a total of 2 weeks. No antibiotics warranted on discharge. Patient was feeling better, wanting to go home, pain improving, afebrile without leukocytosis, and deemed stable for discharge. Medications: Diflucan x7 days Nystatin powder x12 days: Clear affected area with mild soap / water. Apply Nystatin powder twice a day. Okay to shower with running water. Do not submerge affected area or bath. continue home meds as previously prescribed. On admission, metoprolol was initially continued at half dose due to low blood pressure. Blood pressure improved and was normal to high on day of discharge. Ok to resume home dose of medications. Follow up: PCP 3-5 days Physical Exam: GEN: Alert, oriented, NAD HEENT: Normal conjunctiva, sclera anicteric, CV: Regular rate and rhythm, no edema Pulm: Nonlabored respirations on room air, clear bilaterally ABD: soft, nontender, nondistended Integumentary: erythema in folds of groin improving, overlying vulva /upper thighs Neuro: Normal speech, normal affect Vital Signs/Physical Exam: Temp Pulse Resp BP Pulse Ox 97.7 F 65 18 138/63 97 04/05/23 12:00 04/05/23 12:00 04/05/23 12:00 04/05/23 12:00 04/05/23 12:00 Laboratory Data at Discharge: WBC 7.30 thou/uL (4.3-10.9) 04/05/23 12:41 Hgb 11.2 g/dL (12.0-15.0) L 04/05/23 12:41 Hct 32.4 % (36.0-45.0) L 04/05/23 12:41 Plt Count 383 thou/uL (152-406) 04/05/23 12:41 PT 31.4 SECONDS (9.5-12.5) H 04/03/23 16:45 INR 2.95 04/03/23 16:45 Sodium 138 mEq/L (136-145) 04/05/23 12:41 Potassium 3.8 mEq/L (3.5-5.1) 04/05/23 12:41 BUN 10 mg/dL (7-18) 04/05/23 12:41 Creatinine 0.75 mg/dL (0.55-1.02) 04/05/23 12:41 Glucose 117 mg/dL (74-106) H 04/05/23 12:41 Magnesium 1.4 mg/dL (1.6-2.4) L 04/05/23 12:41 Total Bilirubin 0.4 mg/dL (0.2-1.0) 04/03/23 16:45 AST 11 U/L (15-37) L 04/03/23 16:45 ALT 15 U/L (13-56) 04/03/23 16:45 Alkaline Phosphatase 150 U/L (45-117) H 04/03/23 16:45 Lipase 66 U/L (13-75) 04/03/23 16:45 Home Medications: Escitalopram [Lexapro] 10 mg PO DAILY 10/29/11 Metoprolol Tartrate 100 mg PO BID 10/29/11 ALPRAZolam [Xanax*] 1 tab PO BIDP PRN 03/18/19 Dabigatran Etexilate Mesylate [Pradaxa*] 1 tab PO BID 03/18/19 Omeprazole [Prilosec] 1 tab PO DAILY 03/18/19 Valsartan/Hydrochlorothiazide [Valsartan-Hctz 320-12.5 mg Tab] 1 tab PO DAILY 03/18/19 Folic Acid 1 mg PO DAILY #90 tablet 03/20/19 Thiamine HCl 100 mg PO DAILY #90 tablet 03/20/19 NIFEdipine [Nifedipine ER] 30 mg PO DAILY 04/04/23 Rivaroxaban [Xarelto] 20 mg PO DAILY 04/04/23 Fluconazole [Diflucan] 100 mg PO DAILY 7 Days #7 tab 04/05/23 Nystatin [Nystop] 1 appl TOP BID 14 Days #60 gm 04/05/23 New Medications: Fluconazole [Diflucan] 100 mg PO DAILY 7 Days #7 tab Nystatin [Nystop] 1 appl TOP BID 14 Days #60 gm Physician Discharge Instructions: Patient presented with vulvovaginal itching excoriation and weepy lesions, burning sensation when urinating. Suspect vulvovaginitis, likely secondary to yeast infection. CT chest/abd negative for any acute findings. Venous ultrasound negative for DVT. Patient noted to fail outpatient therapy on multiple antibiotics over the last 2 weeks. (Cephalexin / bactrim filled 03/13 for 10 days and ciprofloxacin filled 03/23 for 10 days). ID was consulted. Patient was given empiric cefepime and diflucan and had improvement of her symptoms. Blood cultures without growth since 04/04. Urine culture preliminary with mixed erik (between 10k-100k CFU/ML). Patient is to complete 7 more days of PO diflucan on discharge. Continue nystatin powder for 12 more days for a total of 2 weeks. No antibiotics warranted on discharge. Patient was feeling better, wanting to go home, pain improving, afebrile without leukocytosis, and deemed stable for discharge. Medications: Diflucan x7 days Nystatin powder x12 days: Clear affected area with mild soap / water. Apply Nystatin powder twice a day. Okay to shower with running water. Do not submerge affected area or bath. continue home meds as previously prescribed. On admission, metoprolol was initially continued at half dose due to low blood pressure. Blood pressure improved and was normal to high on day of discharge. Ok to resume home dose of medications. Follow up: PCP 3-5 days Followup: Floridalma Guallpa NP [Primary Care Provider] - (F/U in 3-5 days) Time spent managing pt's care (in minutes): 45
== END 2023-04-05 15:50 | disposition home or self-care (01) | DRG 758 ==
LOC: ER 13:56 → ERHOLD 19:59 → 2ND 22:10
PROVIDERS: ADMIT Internal Medicine Nephrology; ATTEND Hospitalist
DX: N76.0 Acute vaginitis (principal); I48.20 Chronic atrial fibrillation, unspecified; N39.0 Urinary tract infection, site not specified; I10 Essential (primary) hypertension; L30.4 Erythema intertrigo; E66.09 Other obesity due to excess calories; B37.9 Candidiasis, unspecified; B36.9 Superficial mycosis, unspecified; Z68.36 Body mass index [BMI] 36.0-36.9, adult; Z79.01 Long term (current) use of anticoagulants; Z79.899 Other long term (current) drug therapy
CPT/HCPCS: 36415; 71045; 71250; 74176; 80048; 80076; 81001; 82947; 83690; 83735; 83880; 84484; 85025; 85610; 87040; 87086; 87088; 93005; 93970; J0692; J1650; J2270; J2405; J7030

== ENCOUNTER 2024-01-12 13:41 | Emergency (ER) | payer OTHER ==
[2024-01-12 14:27] LABS: Absolute Eosinophils 0.6 K/uL (0-0.5); Absolute Lymphocytes (CBC) 0.4 K/uL (0.7-4.9); Absolute Monocytes 0.7 K/uL (0.1-1.3); Absolute Neutrophil 2.6 K/uL (1.8-8.0); Eosinophils % 13.4 % (0-4.4); Hematocrit 35.2 % (36.0-45.0); Hemoglobin 11.8 g/dL (12.0-15.0); Lymphocytes % 9.4 % (15.3-44.8); MCH 38.8 pg (27.0-35.0); MCHC 33.5 g/dL (32.0-36.0); MCV 115.8 fL (80-100); MPV 8.3 fL (7.6-11.3); Monocytes % 15.5 % (3.3-12.3); Neutrophils % 60.7 % (41.7-73.7); Platelets 331 thou/uL (152-406); RBC Red Blood Cell Count 3.04 M/uL (3.86-4.86); Red Cell Distribution Width 12.3 % (12.1-15.2)
[2024-01-12 14:36] LABS: Blood Morphology Comment NOTED (NOT SEEN); Macrocytosis 3+; Platelet Estimate ADEQ; White Blood Cell Scan OK (OK)
[2024-01-12 14:43] LABS: PT Prothrombin Time 27.6 SECONDS (9.4-12.5); PTT, Activated Partial Thromb 49.8 SECONDS (24.3-36.9); Protime INR 2.53
[2024-01-12 14:48] LABS: Albumin 3.1 g/dL (3.4-5.0); Albumin/Globulin Ratio 0.7 (1.1-1.8); Anion Gap 11.1 mEq/L (5.0-15.0); Bilirubin Total 0.4 mg/dL (0.2-1.0); C-Reactive Protein 9.37 mg/L (<3.00); Globulin 4.3 g/dL (2.3-3.5); Potassium 4.1 mEq/L (3.5-5.1); Protein, Total 7.4 g/dL (6.4-8.2)
[2024-01-12] MEDS ORDERED: dexAMETHasone 10 MG/ML VIAL ONE (15:42)
--- NOTE | 2024-01-12 15:42 | ER ---
Nurse's Notes [facility] Name: Jennyfer Castillo Age: 78 yrs Sex: Female : 1945 Arrival Date: 01/12/2024 Time: 13:41 Bed 7 Private MD: Diagnosis: Adverse effect of antibiotic;Drug rash Presentation: 01/11 13:49 Chief complaint: EMS states: patient has non raised red rash to bilateral lower ext, ko1 does not itch. Coronavirus screen: At this time, the client does not indicate any symptoms associated with coronavirus-19. Ebola Screen: No symptoms or risks identified at this time. Initial Sepsis Screen: Does the patient meet any 2 criteria? No. Patient's initial sepsis screen is negative. Does the patient have a suspected source of infection? No. Patient's initial sepsis screen is negative. Risk Assessment: Do you want to hurt yourself or someone else? Patient reports no desire to harm self or others. Onset of symptoms is unknown. Mechanism of Injury: No Mechanism of Injury. 13:49 Method Of Arrival: EMS: [facility] ko1 13:49 Acuity: GWEN 3 ko1 Triage Assessment: 13:57 General: Appears in no apparent distress. Behavior is calm, cooperative, appropriate ko1 for age. Pain: Denies pain. Historical: - Allergies: 13:53 kiwi; ko1 - Home Meds: 13:53 Lexapro 10 mg Oral tab 1 tab once daily [Active]; Xanax 0.5 mg Oral tab 1 tab 2 times ko1 per day [Active]; levocetirizine 5 mg oral tablet 1 tab daily [Active]; nifedipine 30 mg Oral tablet, extended release 1 tab daily [Active]; Xarelto 20 mg oral tablet 1 tab daily [Active]; metoprolol tartrate 100 mg Oral tab 1 tab 2 times per day [Active]; - PMHx: 13:57 Atrial Fib; Hypertension; ko1 - PSHx: 13:57 Unable to Obtain; ko1 - Immunization history:: Adult Immunizations up to date. - Infectious Disease History:: Denies. - Social history:: Smoking status: Patient denies any tobacco usage or history of. - Family history:: not pertinent. Screenin:21 [facility] ED Fall Risk Assessment (Adult) History of falling in the last 3 months, ko1 including since admission No falls in past 3 months (0 pts) Confusion or Disorientation No (0 pts) Intoxicated or Sedated No (0 pts) Impaired Gait No (0 pts) Mobility Assist Device Used No (0 pt) Altered Elimination No (0 pt) Score/Fall Risk Level 0 - 2 = Low Risk Oriented to surroundings, Maintained a safe environment, Educated pt \T\ family on fall prevention, incl call for assistance when getting out of bed, Assessed \T\ reinforced patient's understanding of fall precautions, Provided non-skid footwear, Hourly rounding (assess needs \T\ fall precautionary measures) done. Abuse screen: Denies threats or abuse. Denies injuries from another. Nutritional screening: No deficits noted. Tuberculosis screening: No symptoms or risk factors identified. Assessment: 14:28 General: Appears in no apparent distress. comfortable, Behavior is calm, cooperative, ko1 appropriate for age. Pain: Denies pain. Neuro: No deficits noted. Cardiovascular: No deficits noted. Respiratory: No deficits noted. GI: No deficits noted. : No deficits noted. EENT: No deficits noted. Derm: petechiae appearing to bilateral lower ext. Musculoskeletal: No signs and/or symptoms reported regarding the musculoskeletal system. Vital Signs: 13:49 BP 147 / 60; Pulse 53; Resp 16; Temp 98.3; Pulse Ox 99% on R/A; ko1 14:24 BP 153 / 53; Pulse 54; Resp 16; Pulse Ox 99% ; ko1 15:28 BP 133 / 83; Pulse 62; Resp 16; Pulse Ox 98% ; ko1 ED Course: 13:44 Patient arrived in ED. ko1 13:44 Steve Branham MD is Attending Physician. rt 13:45 Macy Hartman, JOSE ALFREDO is Primary Nurse. ko1 13:53 Triage completed. ko1 13:57 Arm band placed on right wrist. Patient placed in an exam room, on a stretcher, on ko1 lunchroom monitor, on pulse oximetry, Patient notified of wait time. 14:21 Patient has correct armband on for positive identification. Allergy band placed. Placed ko1 in gown. Bed in low position. Call light in reach. Side rails up X2. Provided Education on: labs. Pulse ox on. NIBP on. Door closed. Noise minimized. Lights dimmed. Warm blanket given. Diet tray ordered. 14:21 No provider procedures requiring assistance completed. Initial lab(s) drawn, by me, ko1 sent to lab. EKG done, by ED staff, reviewed by Steve Branham MD. Inserted saline lock: 18 gauge in right antecubital area, using aseptic technique. Blood collected. Flushed with 10 mL NS. 14:34 Blood Culture Adult (2) Sent. ko1 14:34 CBC with Diff Sent. ko1 14:34 CMP Sent. ko1 14:34 Lactate w/ 2H reflex if indic. Sent. ko1 14:34 Protime (+inr) Sent. ko1 14:34 Ptt, Activated Sent. ko1 14:34 CRP Sent. ko1 16:02 IV discontinued, intact, bleeding controlled, No redness/swelling at site. Pressure ko1 dressing applied. Administered Medications: 15:43 Drug: Dexamethasone IVP 10 mg IVP once; (not to exceed 40 mg) Route: IVP; Site: right ko1 antecubital; 16:03 Follow up: Response: No adverse reaction ko1 Medication: 14:21 VIS not applicable for this client. ko1 Outcome: 15:42 Discharge ordered by MD. rt 16:03 Discharged to home ambulatory, with family, ko1 16:03 Condition: stable 16:03 Discharge instructions given to patient, family, Instructed on discharge instructions, follow up and referral plans. medication usage, Demonstrated understanding of instructions, follow-up care, medications, Prescriptions given X 2, 16:04 Patient left the ED. ko1 Signatures: Macy Hartman RN RN ko1 Steve Branham MD MD rt Corrections: (The following items were deleted from the chart) 13:58 13:53 Home Meds: Pradaxa 150 mg Oral cap 1 cap 2 times per day; ko1 ko1 13:58 13:53 Home Meds: valsartan-hydrochlorothiazide 320-12.5 mg Oral tab 1 tab once daily; ko1 ko1 13:58 13:57 Home Meds: Pradaxa 150 mg Oral cap 1 cap 2 times per day; ko1 ko1 13:58 13:57 Home Meds: valsartan-hydrochlorothiazide 320-12.5 mg Oral tab 1 tab once daily; ko1 ko1
--- NOTE | 2024-01-12 15:43 | EDPHYS ---
Physician Documentation [facility] Name: Jennyfer Castillo Age: 78 yrs Sex: Female : 1945 Arrival Date: 01/12/2024 Time: 13:41 Bed 7 Private MD: ED Physician Steve Branham HPI: 01/11 17:26 This 78 yrs old Female presents to ER via EMS with complaints of Rash. rt 17:26 Patient presents to the ED with rash to the bilateral lower extremities starting rt yesterday. Denies pain, itching to the area. Patient was recently prescribed Bactrim, had a couple doses of it before the rash.. States that she was given this due to concern for infection due to scabbing on the right lower extremity. Denies oral lesion, difficulty breathing, acute complaints, symptoms are moderate in severity, no other aggravating or elevating factors.. Historical: - Allergies: 13:53 kiwi; ko1 - Home Meds: 13:53 Lexapro 10 mg Oral tab 1 tab once daily [Active]; Xanax 0.5 mg Oral tab 1 tab 2 times ko1 per day [Active]; levocetirizine 5 mg oral tablet 1 tab daily [Active]; nifedipine 30 mg Oral tablet, extended release 1 tab daily [Active]; Xarelto 20 mg oral tablet 1 tab daily [Active]; metoprolol tartrate 100 mg Oral tab 1 tab 2 times per day [Active]; - PMHx: 13:57 Atrial Fib; Hypertension; ko1 - PSHx: 13:57 Unable to Obtain; ko1 - Immunization history:: Adult Immunizations up to date. - Infectious Disease History:: Denies. - Social history:: Smoking status: Patient denies any tobacco usage or history of. - Family history:: not pertinent. ROS: 17:26 Constitutional: Negative for fever, chills, and weight loss, Cardiovascular: Negative rt for chest pain, palpitations, and edema, Respiratory: Negative for shortness of breath, cough, wheezing, and pleuritic chest pain, Abdomen/GI: Negative for abdominal pain, nausea, vomiting, diarrhea, and constipation, MS/Extremity: Negative for injury and deformity, 17:26 Skin: Positive for rash, Exam: 17:26 ENT: No intraoral lesions. rt 17:26 Skin: Nonblanchable, petechial rash noted to the bilateral lower extremities.. 18:44 Constitutional: This is a well developed, well nourished patient who is awake, alert, rt and in no acute distress. Head/Face: Normocephalic, atraumatic. Chest/axilla: Normal chest wall appearance and motion. Nontender with no deformity. No lesions are appreciated. Cardiovascular: Regular rate and rhythm with a normal S1 and S2. No gallops, murmurs, or rubs. Normal PMI, no JVD. No pulse deficits. Respiratory: Lungs have equal breath sounds bilaterally, clear to auscultation and percussion. No rales, rhonchi or wheezes noted. No increased work of breathing, no retractions or nasal flaring. Abdomen/GI: Soft, non-tender, with normal bowel sounds. No distension or tympany. No guarding or rebound. No evidence of tenderness throughout. 18:44 ECG was reviewed by the Attending Physician. Vital Signs: 13:49 BP 147 / 60; Pulse 53; Resp 16; Temp 98.3; Pulse Ox 99% on R/A; ko1 14:24 BP 153 / 53; Pulse 54; Resp 16; Pulse Ox 99% ; ko1 15:28 BP 133 / 83; Pulse 62; Resp 16; Pulse Ox 98% ; ko1 MDM: 13:46 Medical Screening Exam initiated rt 18:44 Differential diagnosis: Drug rash, vasculitis, bacteremia, cellulitis. Data reviewed: rt vital signs, nurses notes, lab test result(s). Consideration of Admission/Observation Escalation of care including admission/observation considered. Patient is afebrile, leukocytosis, blood cultures were sent, however, I believe that is very unlikely the patient is bacteremic currently. Will call patient back if the blood cultures come positive but she is not toxic-appearing. I suspect a drug rash due to Bactrim, however, she has no intraoral lesions suggestive of Noe-Edi syndrome. She does not have a desquamating rash. With this was most appropriately treated with withholding Bactrim, may be handled the outpatient setting, however, to give the patient strict return precautions for intraoral lesions or worsening symptoms.. I considered the following discharge prescriptions or medication management in the emergency department Medications were administered in the Emergency Department. See MAR. Care significantly affected by the following chronic conditions: Hypertension. Counseling: I had a detailed discussion with the patient and/or guardian regarding the historical points, exam findings, and any diagnostic results supporting the discharge/admit diagnosis, lab results, the need for outpatient follow up, to return to the emergency department if symptoms worsen or persist or if there are any questions or concerns that arise at home. Response to treatment: There is no appreciated change of the patient's symptoms at this time. 01/11 13:57 Order name: Blood Culture Adult (2) rt 01/11 13:57 Order name: CBC with Diff; Complete Time: 14:51 rt 01/11 13:57 Order name: CMP; Complete Time: 14:51 rt 01/11 13:57 Order name: Lactate w/ 2H reflex if indic.; Complete Time: 14:51 rt 01/11 13:57 Order name: Protime (+inr); Complete Time: 14:51 rt 01/11 13:57 Order name: Ptt, Activated; Complete Time: 14:51 rt 01/11 13:57 Order name: CRP; Complete Time: 14:51 rt 01/11 14:37 Order name: CBC Smear Scan; Complete Time: 14:51 EDMS 01/11 13:57 Order name: Accucheck; Complete Time: 14:43 rt 01/11 13:57 Order name: Cardiac monitoring; Complete Time: 14:07 rt 01/11 13:57 Order name: IV Saline Lock - Large Bore; Complete Time: 14:33 rt 01/11 13:57 Order name: Labs collected and sent; Complete Time: 14:33 rt 01/11 13:57 Order name: O2 Per Protocol; Complete Time: 14:07 rt 01/11 13:57 Order name: O2 Sat Monitoring; Complete Time: 14:07 rt 01/11 13:57 Order name: Vital Signs; Complete Time: 14:07 rt EC:44 Rate is 55 beats/min. Rhythm is irregularly irregular, A fib with No ectopy. QRS [place] rt is Normal. NV interval is normal. QRS interval is normal. QT interval is normal. No Q waves. No ST changes noted. Interpreted by me. Administered Medications: 15:43 Drug: Dexamethasone IVP 10 mg IVP once; (not to exceed 40 mg) Route: IVP; Site: right ko1 antecubital; 16:03 Follow up: Response: No adverse reaction ko1 Disposition Summary: 01/12/24 15:42 Discharge Ordered Notes: Location: Home rt Problem: new rt Symptoms: are unchanged rt Condition: Stable rt Diagnosis - Adverse effect of antibiotic rt - Drug rash rt Followup: rt - With: Private Physician - When: 2 - 3 days - Reason: Followup: rt - With: Emergency Department - When: As needed - Reason: Worsening of condition Discharge Instructions: - Discharge Summary Sheet rt - Drug Rash rt Forms: - Medication Reconciliation Form rt - Antibiotic Education rt - Prescription Opioid Use rt - Patient Portal Instructions rt - Leadership Thank You Letter rt Prescriptions: - Clindamycin HCl 300 mg Oral Capsule - take 1 capsule ORAL route every 6 hours for 10 days; 40 capsule; Refills: 0, rt Product Selection Permitted - Prednisone 20 mg Oral Tablet - take 2 tablets ORAL route once daily for 5 days; 10 tablet; Refills: 0, Product rt Selection Permitted Signatures: Dispatcher [employer] EDMacy Edwards RN RN ko1 Steve Branham MD MD rt Corrections: (The following items were deleted from the chart) 13:58 13:53 Home Meds: Pradaxa 150 mg Oral cap 1 cap 2 times per day; ko1 ko1 13:58 13:53 Home Meds: valsartan-hydrochlorothiazide 320-12.5 mg Oral tab 1 tab once daily; ko1 ko1 13:58 13:57 Home Meds: Pradaxa 150 mg Oral cap 1 cap 2 times per day; ko1 ko1 13:58 13:57 Home Meds: valsartan-hydrochlorothiazide 320-12.5 mg Oral tab 1 tab once daily; ko1 ko1 17:27 17:26 Patient presents to the ED with rash to the bilateral lower extremities starting rt yesterday.. rt
[2024-01-12 16:11] VITALS: TEMP 98.3
[2024-01-12 16:13] VITALS: BP 133/83; O2SAT 98
--- NOTE | 2024-01-14 12:07 | EKG ---
Test Date: 2024-01-12 Test Time: 14:32:21 Resistor Inspector: JACOBO Ward MEASUREMENT RESULTS: Intervals: Rate: 55 MT: QRSD: 94 QT: 352 QTc: 336 [place]: P: MT: QRS: -22 T: 196 INTERPRETIVE STATEMENTS: Atrial fibrillation with slow ventricular response Cannot rule out Anterior infarct, age undetermined Abnormal ECG Compared to ECG 04/03/2023 16:52:39 Myocardial infarct finding now present ST (T wave) deviation no longer present Electronically Signed On 01-14-24 12:06:08 METE[employer]OLOGICAL EQUIPMENT REPAIRER by Anthony Duarte
== END 2024-01-12 16:04 | disposition home or self-care (01) ==
LOC: ER 13:41
DX: L27.0 Generalized skin eruption due to drugs and medicaments taken internally (principal); T36.8X5A Adverse effect of other systemic antibiotics, initial encounter; I10 Essential (primary) hypertension; I48.91 Unspecified atrial fibrillation; Z79.01 Long term (current) use of anticoagulants
CPT/HCPCS: 93005; 87040 ×2; 85025; 36415; 85610; 83605; 85730; 80053; 86140; 96374; 99285; J1100